=== PATIENT | male | born 1965 | race Hispanic/Latino ===

== ENCOUNTER 2019-06-19 13:40 | Inpatient (IN) | payer BC, OTHER ==
[2019-06-19] MEDS ORDERED: MORPHINE 4 MG/1 ML INJ IV ONE (14:43)
[2019-06-19] MEDS ORDERED: ONDANSETRON 4 MG/2 ML INJ IV ONE (14:43)
--- NOTE | 2019-06-19 14:47 | Emergency Department Report ---
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 Patient presented to the emergency room via EMS stating that he has been having generalized weakness and pain on the right side upper extremity side and lower extremity on the right si de. Patient also added that his is unable to take care of him at home because of his significant weakness.. -: week(s) Severity scale (0 -10): 8 - Related Data Allergies Allergy/AdvReac Type Severity Reaction Status Date / Time No Known Allergies Allergy Unverified 06/19/19 16:08 ED Review of Systems ROS: Stated complaint: BACKPAIN Other details as noted in HPI Comment: All other systems reviewed and negative Constitutional: denies: chills, fever Respiratory: denies: cough, shortness of breath Cardiovascular: denies: chest pain Gastrointestinal: denies: abdominal pain, nausea, vomiting Genitourinary: denies: urgency, dysuria Musculoskeletal: denies: back pain Neurological: weakness (left side weakness, chronic). denies: headache, numbness, paresthesias, confusion, abnormal gait ED Past Medical Hx - Past Medical History Previous Medical History?: Yes Hx CVA: Yes - Surgical History Past Surgical History?: No - Social History Smoking Status: Never Smoker Substance Use Type: None ED Physical Exam - General Limitations: Physical Limitation General appearance: alert, in no apparent distress - Head Head exam: Present: atraumatic, normocephalic, normal inspection - Eye Eye exam: Present: normal appearance, PERRL - ENT ENT exam: Present: normal exam, normal orophraynx, mucous membranes moist - Neck Neck exam: Present: normal inspection, full ROM. Absent: tenderness, meningismus, lymphadenopathy, thyromegaly - Respiratory Respiratory exam: Present: normal lung sounds bilaterally - Cardiovascular Cardiovascular Exam: Present: regular rate, normal rhythm, normal heart sounds - GI/Abdominal GI/Abdominal exam: Present: soft, normal bowel sounds. Absent: distended, tenderness, guarding, rebound, rigid, organomegaly, mass, bruit, pulsatile mass, hernia - Extremities Exam Extremities exam: Present: normal inspection, full ROM, normal capillary refill. Absent: pedal edema, calf tenderness - Back Exam Back exam: Present: normal inspection, full ROM. Absent: CVA tenderness (R), CVA tenderness (L) - Neurological Exam Neurological exam: Present: alert, oriented X3, motor sensory deficit (chronic left upper and lower extremity weakness.) - Psychiatric Psychiatric exam: Present: normal mood - Skin Skin exam: Present: warm, intact, normal color ED Course Vital Signs 06/19/19 06/19/19 14:03 14:14 Temperature 98.0 F 98.0 F Pulse Rate 66 56 L Respiratory 17 17 Rate Blood Pressure 155/83 Blood Pressure 155/83 155/83 [Left] O2 Sat by Pulse 98 98 Oximetry ED Medical Decision Making - Lab Data Result diagrams: 06/19/19 14:49 06/19/19 14:49 - EKG Data -: EKG Interpreted by Me EKG shows normal: sinus rhythm - EKG Data Interpretation: no acute changes - Medical Decision Making Patient is 54-year-old male with 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 Patient presented to the emergency room via EMS stating that he has been having generalized weakness and pain on the right side upper extremity side and lower extremity on the right side. Patient also added that his is unable to take care of him at home because of his significant weakness. Labs reviewed and is unremarkable. Patient received morphine for pain. I discussed the patient with Dr. Camarena, return to the patient to medical service. Critical care attestation.: If time is entered above; I have spent that time in minutes in the direct care of this critically ill patient, excluding procedure time. ED Disposition Clinical Impression: Weakness Disposition: DC-09 OP ADMIT IP TO THIS HOSP Is pt being admited?: Yes Condition: Stable
[2019-06-19 15:04] LABS: Basophils % (Auto) 0.2 % (0.0-1.8); Eosinophils % (Auto) 1.1 % (0.0-4.3); Hematocrit 34.2 % (35.5-45.6); Hemoglobin 11.5 gm/dl (11.8-15.2); Lymphocytes # (Auto) 0.7 K/mm3 (1.2-5.4); Mean Corpuscular HGB Conc 34 % (32-34); Mean Corpuscular Volume 91 fl (84-94); Monocytes # (Auto) 0.3 K/mm3 (0.0-0.8); Monocytes % (Auto) 9.9 % (0.0-7.3); Platelet Count 156 K/mm3 (140-440); Red Blood Count 3.75 M/mm3 (3.65-5.03); Red Cell Distribution Width 14.4 % (13.2-15.2)
[2019-06-19 15:27] LABS: BUN/Creatinine Ratio 17; Blood Urea Nitrogen 10 mg/dL (9-20); Calcium 9.5 mg/dL (8.4-10.2); Hemolysis Index 1
[2019-06-19 15:29] LABS: Alanine Aminotransferase 19 units/L (7-56); Albumin 3.8 g/dL (3.9-5)
[2019-06-19 15:30] LABS: Bilirubin,Direct < 0.2 mg/dL (0-0.2)
[2019-06-19] MEDS ORDERED: ONDANSETRON 4 MG/2 ML INJ IV PRN (22:28)
[2019-06-19] MEDS ORDERED: ACETAMINOPHEN 325 MG TAB PO PRN (22:28)
[2019-06-19] MEDS ORDERED: METOCLOPRAMIDE 10 MG/2 ML INJ IV PRN (22:28)
[2019-06-20] MEDS: MORPHINE 2 MG/1 ML INJ IV PRN ×2 (01:51→13:55)
[2019-06-20 05:11] LABS: Basophils % (Auto) 0.7 % (0.0-1.8); Eosinophils # (Auto) 0.1 K/mm3 (0.0-0.4); Eosinophils % (Auto) 3.1 % (0.0-4.3); Hematocrit 33.1 % (35.5-45.6); Lymphocytes # (Auto) 1.1 K/mm3 (1.2-5.4); Mean Corpuscular HGB Conc 33 % (32-34); Mean Corpuscular Volume 93 fl (84-94); Monocytes # (Auto) 0.4 K/mm3 (0.0-0.8); Monocytes % (Auto) 11.8 % (0.0-7.3); Platelet Count 154 K/mm3 (140-440); Red Blood Count 3.58 M/mm3 (3.65-5.03); Red Cell Distribution Width 14.5 % (13.2-15.2)
[2019-06-20 05:35] LABS: Alanine Aminotransferase 18 units/L (7-56); Albumin 3.5 g/dL (3.9-5); BUN/Creatinine Ratio 15; Blood Urea Nitrogen 9 mg/dL (9-20); Calcium 9.2 mg/dL (8.4-10.2); Hemolysis Index 5
--- NOTE | 2019-06-20 07:06 | History and Physical Report ---
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 Patient presented to the emergency room via EMS stating that he has been having generalized weakness and pain on the right side upper extremity side and lower extremity on the right side. Patient also added that his is unable to take care of him at home because of his significant weakness.. Past Medical History Previous Medical History?: Yes Hx CVA: Yes--Hemorrhagic stroke Total L side paralysis Brain aneurysm - Surgical History Past Surgical History?: No - Social History Smoking Status: Never Smoker Substance Use Type: None Review of Systems ROS: Stated complaint: BACKPAIN Other details as noted in HPI Comment: All other systems reviewed and negative Constitutional: denies: chills, fever Respiratory: denies: cough, shortness of breath Cardiovascular: denies: chest pain Gastrointestinal: denies: abdominal pain, nausea, vomiting Genitourinary: denies: urgency, dysuria Musculoskeletal: denies: back pain Neurological: weakness (left side weakness, chronic). denies: headache, numbness, paresthesias, confusion, abnormal gait Medications and Allergies Allergies Allergy/AdvReac Type Severity Reaction Status Date / Time No Known Allergies Allergy Unverified 06/19/19 16:08 Active Meds: Active Medications Acetaminophen (Tylenol) 650 mg PO Q4H PRN PRN Reason: Pain MILD(1-3)/Fever >100.5/VALLADARES Famotidine (Pepcid) 20 mg PO BID [facility] Sodium Chloride (Nacl 0.9% 1000 Ml) 1,000 mls @ 75 mls/hr IV DIRECT [facility] Metoclopramide HCl (Reglan) 10 mg IV Q6H PRN PRN Reason: Nausea And Vomiting Last Admin: 06/20/19 01:53 Dose: 10 mg Documented by: Morphine Sulfate (Morphine) 2 mg IV Q4H PRN PRN Reason: Pain, Moderate (4-6) Last Admin: 06/20/19 01:51 Dose: 2 mg Documented by: Ondansetron HCl (Zofran) 4 mg IV Q8H PRN PRN Reason: Nausea And Vomiting Sodium Chloride (Sodium Chloride Flush Syringe 10 Ml) 10 ml IV BID [facility] Last Admin: 06/20/19 01:54 Dose: 10 ml Documented by: Sodium Chloride (Sodium Chloride Flush Syringe 10 Ml) 10 ml IV PRN PRN PRN Reason: LINE FLUSH Exam - Constitutional Vitals: Temp Pulse Resp BP Pulse Ox 97.6 F 65 20 160/84 100 06/20/19 05:37 06/20/19 05:37 06/20/19 05:37 06/20/19 05:37 06/20/19 05:37 General appearance: Present: no acute distress, well-nourished - EENT Eyes: Present: PERRL ENT: hearing intact, clear oral mucosa - Neck Neck: Present: supple, normal ROM - Respiratory Respiratory effort: normal Respiratory: bilateral: CTA - Cardiovascular Heart rate: 88 Rhythm: regular Heart Sounds: Present: S1 & S2. Absent: rub, click - Extremities Extremities: no ischemia, pulses intact, pulses symmetrical, No edema Peripheral Pulses: within normal limits - Abdominal General gastrointestinal: Present: soft, non-tender, non-distended, normal bowel sounds Male genitourinary: Present: normal - Rectal Rectal Exam: deferred - Integumentary Integumentary: Present: clear, warm, dry - Musculoskeletal Musculoskeletal: left sided weakness (0/5 power lue and lle) - Psychiatric Psychiatric: appropriate mood/affect, intact judgment & insight - Neurologic Neurologic: CNII-XII intact, focal deficits (L side hemiplegia), moves all extremities, gait normal Results - Labs CBC & Chem 7: 06/20/19 04:43 06/20/19 04:43 Labs: Laboratory Last Values WBC 3.3 K/mm3 (4.5-11.0) L 06/20/19 04:43 RBC 3.58 M/mm3 (3.65-5.03) L 06/20/19 04:43 Hgb 11.0 gm/dl (11.8-15.2) L 06/20/19 04:43 Hct 33.1 % (35.5-45.6) L 06/20/19 04:43 MCV 93 fl (84-94) 06/20/19 04:43 MCH 31 pg (28-32) 06/20/19 04:43 MCHC 33 % (32-34) 06/20/19 04:43 RDW 14.5 % (13.2-15.2) 06/20/19 04:43 Plt Count 154 K/mm3 (140-440) 06/20/19 04:43 Lymph % (Auto) 33.0 % (13.4-35.0) 06/20/19 04:43 [place] % (Auto) 11.8 % (0.0-7.3) H 06/20/19 04:43 Eos % (Auto) 3.1 % (0.0-4.3) 06/20/19 04:43 Baso % (Auto) 0.7 % (0.0-1.8) 06/20/19 04:43 Lymph # 1.1 K/mm3 (1.2-5.4) L 06/20/19 04:43 [place] # 0.4 K/mm3 (0.0-0.8) 06/20/19 04:43 Eos # 0.1 K/mm3 (0.0-0.4) 06/20/19 04:43 Baso # 0.0 K/mm3 (0.0-0.1) 06/20/19 04:43 Seg Neutrophils % 51.4 % (40.0-70.0) 06/20/19 04:43 Seg Neutrophils # 1.7 K/mm3 (1.8-7.7) L 06/20/19 04:43 Sodium 135 mmol/L (137-145) L 06/20/19 04:43 Potassium 3.7 mmol/L (3.6-5.0) 06/20/19 04:43 Chloride 96.8 mmol/L (98-107) L 06/20/19 04:43 Carbon Dioxide 23 mmol/L (22-30) 06/20/19 04:43 19 mmol/L 06/20/19 04:43 BUN 9 mg/dL (9-20) 06/20/19 04:43 0.6 mg/dL (0.8-1.5) L 06/20/19 04:43 Estimated GFR > 60 ml/min 06/20/19 04:43 15 % 06/20/19 04:43 Glucose 74 mg/dL (75-100) L 06/20/19 04:43 5.6 % (4-6) 06/19/19 22:44 Calcium 9.2 mg/dL (8.4-10.2) 06/20/19 04:43 Magnesium 1.50 mg/dL (1.7-2.3) L 06/19/19 14:49 0.20 mg/dL (0.1-1.2) 06/20/19 04:43 < 0.2 mg/dL (0-0.2) 06/19/19 14:49 0.0 mg/dL 06/19/19 14:49 AST 13 units/L (5-40) 06/20/19 04:43 ALT 18 units/L (7-56) 06/20/19 04:43 67 units/L (35-129) 06/20/19 04:43 < 0.010 ng/mL (0.00-0.029) 06/19/19 14:49 7.3 g/dL (6.3-8.2) 06/20/19 04:43 3.5 g/dL (3.9-5) L 06/20/19 04:43 0.9 % 06/20/19 04:43 Orders 06/19/19 22:28 Nursing Standard Care CONT Physician Instructions: Resuscitation status . ORDERED Comment: Physician Instructions: Resuscitation Status: Full Code 06/19/19 22:31 Call Consult Provider Once Physician Instructions: Short CBC 06/19/19 06/20/19 Range/Units 14:49 04:43 WBC 3.3 L 3.3 L (4.5-11.0) K/mm3 Hgb 11.5 L 11.0 L (11.8-15.2) gm/dl Hct 34.2 L 33.1 L (35.5-45.6) % Plt Count 156 154 (140-440) K/mm3 BMP 06/19/19 06/20/19 14:49 04:43 Sodium 136 L 135 L Potassium 4.2 3.7 Chloride 97.1 L 96.8 L Carbon Dioxide 25 23 BUN 10 9 Creatinine 0.6 L 0.6 L Glucose 81 74 L Calcium 9.5 9.2 Cardiac Enzymes 06/19/19 Range/Units 14:49 Troponin T < 0.010 (0.00-0.029) ng/mL Liver Function 09/24/19 09/25/19 Range/Units 14:49 04:43 Total Bilirubin 0.20 0.20 (0.1-1.2) mg/dL Direct Bilirubin < 0.2 (0-0.2) mg/dL AST 15 13 (5-40) units/L ALT 19 18 (7-56) units/L Alkaline Phosphatase 71 67 (35-129) units/L Albumin 3.8 L 3.5 L (3.9-5) g/dL Assessment and Plan Advance Directives: Yes (Full code) VTE prophylaxis?: Mechanical Plan of care discussed with patient/family: Yes - Patient Problems (1) Debility Current Visit: Yes Status: Acute Plan to address problem: Patient had stroke on February 10 sec to Aneurysmal bleed.Unable to take care of himself and requests SNF placement for further for further rehab.Says cannot take care of him. Has dense L Hemiplegia (2) CVA (cerebrovascular accident due to intracerebral hemorrhage) Current Visit: Yes Status: Chronic Qualifiers: Intracerebral hemorrhage etiology: nontraumatic Laterality: right Plan to address problem: Happened on Feb 10 2019 Now dense Hemiplegia on L side Needs further rehab (3) Hypomagnesemia Current Visit: Yes Status: Acute Plan to address problem: supllemented (4) Malnutrition Current Visit: Yes Status: Chronic Qualifiers: Protein-calorie malnutrition severity: mild Plan to address problem: Dietitian consult (5) DVT prophylaxis Current Visit: Yes Status: Acute Plan to address problem: on Scd's
[2019-06-20 08:22] LABS: Bilirubin,Urine NEG (Negative); Blood,Urine NEG (Negative); Color,Urine Yellow (Yellow); Protein,Urine <15 mg/dL mg/dL (Negative); RBC,Urine < 1.0 /HPF (0.0-6.0); Urobilinogen,Urine < 2.0 mg/dL (<2.0); WBC,Urine < 1.0 /HPF (0.0-6.0)
[2019-06-20] MEDS ORDERED: MAGNESIUM SULFATE 2 GM/50 ML BAG IV ONE (09:00)
[2019-06-20] MEDS: FAMOTIDINE 20 MG TAB PO SCH ×2 (09:42→23:36)
--- NOTE | 2019-06-20 13:01 | Consultation ---
History of Present Illness Consult date: 06/20/19 Reason for Consult: history of stroke Chief complaint: Generalized weakness and pain History of present illness: Patient is a 54 old man with a history of hypertension, history of hemorrhagic stroke in January 2019 with residual left-sided weakness. Patient states that he had a hemorrhagic stroke in January 2019, and was found to have an aneurysm at that time. He was treated for the stroke at [place]. Patient states that after being discharged from [facility], he then spent time and rehabilitation, and ultimately went home in April 2019. He states that since being discharged home last month, he has not been getting physical therapy, and feels that it is been difficult for his to take care of him at home. He therefore feels that he would be better equipped at a rehabilitation facility or nursing facility in order for him to continue with work with physical therapy and continue to recover from the stroke. He denies any acute changes in symptoms recently, and states that he has been having ongoing generalized aches and pains over the past several weeks. Past History Past Medical History: other (hemorrhagic stroke due to aneurysm rupture in January 2019, hypertension) Social history: lives with family, other (previous smoker) Family history: no significant family history Medications and Allergies Allergies Allergy/AdvReac Type Severity Reaction Status Date / Time No Known Allergies Allergy Unverified 06/19/19 16:08 Active Meds: Active Medications Acetaminophen (Tylenol) 650 mg PO Q4H PRN PRN Reason: Pain MILD(1-3)/Fever >100.5/VALLADARES Famotidine (Pepcid) 20 mg PO BID [facility] Last Admin: 06/20/19 09:42 Dose: 20 mg Documented by: Sodium Chloride (Nacl 0.9% 1000 Ml) 1,000 mls @ 75 mls/hr IV DIRECT [facility] Metoclopramide HCl (Reglan) 10 mg IV Q6H PRN PRN Reason: Nausea And Vomiting Last Admin: 06/20/19 01:53 Dose: 10 mg Documented by: Morphine Sulfate (Morphine) 2 mg IV Q4H PRN PRN Reason: Pain, Moderate (4-6) Last Admin: 06/20/19 01:51 Dose: 2 mg Documented by: Ondansetron HCl (Zofran) 4 mg IV Q8H PRN PRN Reason: Nausea And Vomiting Sodium Chloride (Sodium Chloride Flush Syringe 10 Ml) 10 ml IV BID [facility] Last Admin: 06/20/19 09:43 Dose: 10 ml Documented by: Sodium Chloride (Sodium Chloride Flush Syringe 10 Ml) 10 ml IV PRN PRN PRN Reason: LINE FLUSH Review of Systems All systems: negative Constitutional: weakness, chronic pain Neurological: other (chronic left-sided weakness) Physical Examination - Vital Signs Vital Signs: Vital Signs Temp Pulse Resp BP Pulse Ox 98.0 F 66 17 155/83 98 06/19/19 14:03 06/19/19 14:03 06/19/19 14:03 06/19/19 14:03 06/19/19 14:03 - Physical Exam Narrative exam: Patient is awake, alert, oriented 4. Pupils equal, round, reactive to light. Extraocular movements intact, mild left facial weakness noted. Bilaterally intact to light touch on both sides of the face. Noted to have left visual field extinction on bilateral stimulation. Left upper extremity strength 1/5, left lower extremity strength 1 out of 5, right upper lower extremity strength 5/5. 3+ reflexes in left upper and lower extremities, 2+ reflexes on right upper and lower extremities. Bilaterally intact light touch in all extremities. [id number] and [id number] intact on the right, unable to assess on the left due to weakness. - Constitutional General appearance: comfortable - EENT EENT: Present: ATNC, PERRL, mucous membranes moist - Respiratory Respiratory: Present: lungs clear, normal breath sounds - Cardiovascular Cardiovascular: Present: regular rate, normal S1, normal S2 Extremities: Present: no clubbing, cyanosis, no inflammation - Gastrointestinal Gastrointestinal: Present: normoactive bowel sounds, soft, non-tender - Integumentary Integumentary: Present: normal - Psychiatric Psychiatric: Present: mood/affect appropriate - Level of Consciousness 1a. Level of Consciousness: alert/keenly responsive - LOC Questions 1b. LOC Questions: answers both correctly - LOC Command 1c. LOC Commands: performs tasks correctly - Best Gaze 2. Best Gaze: normal - Visual 3. Visual: no visual loss - Facial Palsy 4. Facial Palsy: minor paralysis - Motor Arm 5a. Motor Arm Left: no movement 5b. Motor Arm Right: no drift - Motor Leg 6a. Motor Leg Left: no gravity effort 6b. Motor Leg Right: no drift - Limb Ataxia 7. Limb Ataxia: absent - Sensory 8. Sensory: normal - Best Language 9. Best Language: no aphasia - Dysarthria 10. Dysarthria: normal - Extinction and Inattention 11. Extinction/Inattention: visual/tactile inattention - Scoring Total Score: 9 Stroke Severity: Moderate Stroke Results - Laboratory Findings CBC and BMP: 06/20/19 04:43 06/20/19 04:43 Abnormal Lab Findings: Abnormal Labs 06/19/19 06/19/19 06/19/19 14:49 14:49 14:49 WBC 3.3 L RBC Hgb 11.5 L Hct 34.2 L [place] % (Auto) 9.9 H Lymph # 0.7 L Seg Neutrophils # Sodium 136 L Chloride 97.1 L Creatinine 0.6 L Glucose Magnesium 1.50 L Albumin 3.8 L 06/20/19 06/20/19 04:43 04:43 WBC 3.3 L RBC 3.58 L Hgb 11.0 L Hct 33.1 L [place] % (Auto) 11.8 H Lymph # 1.1 L Seg Neutrophils # 1.7 L Sodium 135 L Chloride 96.8 L Creatinine 0.6 L Glucose 74 L Magnesium Albumin 3.5 L Assessment and Plan Patient is a 54 old man with a history of hypertension, history of hemorrhagic stroke due to aneurysmal rupture in January 2019 with residual left-sided weakness. According the patient's clinical findings, he's had a previous hemorrhagic stroke in January 2019 due to aneurysm rupture. He does not have any acute complaints at this time, however he states that he is had ongoing intermittent muscle related pain for the past several weeks since his stroke. He feels that he is not getting proper care at home, as he does not have physical therapy since being discharged home from rehabilitation. He also feels that his is not fully able to take care of him at home, as he is otherwise unable to walk. Plan: 1. History of hemorrhagic stroke with residual left sided weakness - Patient does not have any acute complaints at this time, and therefore does not warrant any acute neurologic workup. However, he would likely benefit from ongoing Physical Therapy, which he has not been getting since he was discharged to home last month. Patient also feels that his is not able to take care of him on her own at this time. Therefore, recommend for patient to be placed in a facility where he can have ongoing physical therapy, and potentially have improved supervised care, which he feels is unable to currently get at home. - Recommend PT evaluation inpatient. - Recommend for patient to be followed up by PM&R as outpatient, for long-term disability after hemorrhagic stroke. - Recommend for patient to have outpatient follow up with neurology. - Recommend target normotension. - Will sign off, as no further workup required at this time, and treatment plan is in place. Thank you for allowing me to take part in the care of this patient. Brady Knight MD Neurology
--- NOTE | 2019-06-20 14:28 | Progress Note ---
Assessment and Plan Assessment and plan: (1) Debility Current Visit: Yes Status: Acute Plan to address problem: Patient had stroke on February 10 sec to Aneurysmal bleed.Unable to take care of himself and requests SNF placement for further for further rehab.Says cannot take care of him. Has dense L Hemiplegia (2) CVA (cerebrovascular accident due to intracerebral hemorrhage) Current Visit: Yes Status: Chronic Qualifiers: Intracerebral hemorrhage etiology: nontraumatic Laterality: right Plan to address problem: Happened on Feb 10 2019 Now dense Hemiplegia on L side Needs further rehab (3) Hypomagnesemia Current Visit: Yes Status: Acute Plan to address problem: supllemented (4) Malnutrition Current Visit: Yes Status: Chronic Qualifiers: Protein-calorie malnutrition severity: mild Plan to address problem: Dietitian consult (5) DVT prophylaxis Current Visit: Yes Status: Acute Plan to address problem: on [facility]'s Disposition; pending SNF placement History Interval history: Patient was seen and evaluated this morning. Patient admitted here for placement. Hospitalist Physical - Physical exam Narrative exam: Not in cardiopulmonary distress. The patient appeared well nourished and normally developed. Vital signs as documented. Head exam is unremarkable. No scleral icterus . Neck is without jugular venous distension, thyromegaly, or carotid bruits. Lungs are clear to auscultation. Cardiac exam reveals regular rate and Rhythm. First and second heart sounds normal. No murmurs, rubs or gallops. Abdominal exam reveals normal bowel sounds, no masses, no organomegaly and no aortic enlargement. Extremities are nonedematous and both femoral and pedal pulses are normal. ANALYST GEOCHEMICAL PROSPECTING: Alert and oriented 3. Left-sided hemiplegia - Constitutional Vitals: Temp Pulse Resp BP Pulse Ox 97.3 F L 71 18 125/78 97 06/20/19 11:41 06/20/19 11:41 06/20/19 11:41 06/20/19 11:41 06/20/19 11:41 General appearance: Present: no acute distress, well-nourished Results - Labs CBC & Chem 7: 06/20/19 04:43 06/20/19 04:43 Labs: Laboratory Last Values WBC 3.3 K/mm3 (4.5-11.0) L 06/20/19 04:43 RBC 3.58 M/mm3 (3.65-5.03) L 06/20/19 04:43 Hgb 11.0 gm/dl (11.8-15.2) L 06/20/19 04:43 Hct 33.1 % (35.5-45.6) L 06/20/19 04:43 MCV 93 fl (84-94) 06/20/19 04:43 MCH 31 pg (28-32) 06/20/19 04:43 MCHC 33 % (32-34) 06/20/19 04:43 RDW 14.5 % (13.2-15.2) 06/20/19 04:43 Plt Count 154 K/mm3 (140-440) 06/20/19 04:43 Lymph % (Auto) 33.0 % (13.4-35.0) 06/20/19 04:43 [place] % (Auto) 11.8 % (0.0-7.3) H 06/20/19 04:43 Eos % (Auto) 3.1 % (0.0-4.3) 06/20/19 04:43 Baso % (Auto) 0.7 % (0.0-1.8) 06/20/19 04:43 Lymph # 1.1 K/mm3 (1.2-5.4) L 06/20/19 04:43 [place] # 0.4 K/mm3 (0.0-0.8) 06/20/19 04:43 Eos # 0.1 K/mm3 (0.0-0.4) 06/20/19 04:43 Baso # 0.0 K/mm3 (0.0-0.1) 06/20/19 04:43 Seg Neutrophils % 51.4 % (40.0-70.0) 06/20/19 04:43 Seg Neutrophils # 1.7 K/mm3 (1.8-7.7) L 06/20/19 04:43 Sodium 135 mmol/L (137-145) L 06/20/19 04:43 Potassium 3.7 mmol/L (3.6-5.0) 06/20/19 04:43 Chloride 96.8 mmol/L (98-107) L 06/20/19 04:43 Carbon Dioxide 23 mmol/L (22-30) 06/20/19 04:43 19 mmol/L 06/20/19 04:43 BUN 9 mg/dL (9-20) 06/20/19 04:43 0.6 mg/dL (0.8-1.5) L 06/20/19 04:43 Estimated GFR > 60 ml/min 06/20/19 04:43 15 % 06/20/19 04:43 Glucose 74 mg/dL (75-100) L 06/20/19 04:43 5.6 % (4-6) 06/19/19 22:44 Calcium 9.2 mg/dL (8.4-10.2) 06/20/19 04:43 Magnesium 1.50 mg/dL (1.7-2.3) L 06/19/19 14:49 0.20 mg/dL (0.1-1.2) 06/20/19 04:43 < 0.2 mg/dL (0-0.2) 06/19/19 14:49 0.0 mg/dL 06/19/19 14:49 AST 13 units/L (5-40) 06/20/19 04:43 ALT 18 units/L (7-56) 06/20/19 04:43 67 units/L (35-129) 06/20/19 04:43 < 0.010 ng/mL (0.00-0.029) 06/19/19 14:49 7.3 g/dL (6.3-8.2) 06/20/19 04:43 3.5 g/dL (3.9-5) L 06/20/19 04:43 0.9 % 06/20/19 04:43 Yellow (Yellow) 06/20/19 07:39 Clear (Clear) 06/20/19 07:39 6.0 (5.0-7.0) 06/20/19 07:39 Ur Specific [place] 1.008 (1.003-1.030) 06/20/19 07:39 <15 mg/dl mg/dL (Negative) 06/20/19 07:39 Neg mg/dL (Negative) 06/20/19 07:39 Tr mg/dL (Negative) 06/20/19 07:39 Neg (Negative) 06/20/19 07:39 Neg (Negative) 06/20/19 07:39 Neg (Negative) 06/20/19 07:39 < 2.0 mg/dL (<2.0) 06/20/19 07:39 Ur Leukocyte Esterase Neg (Negative) 06/20/19 07:39 < 1.0 /HPF (0.0-6.0) 06/20/19 07:39 < 1.0 /HPF (0.0-6.0) 06/20/19 07:39 Active Medications - Current Medications Current Medications: Generic Name Dose Route Start Last Admin Trade Name Freq PRN Reason Stop Dose Admin Acetaminophen 650 mg 06/19/19 22:28 Tylenol PO Q4H PRN Pain MILD(1-3)/Fever >100.5/VALLADARES Famotidine 20 mg 06/20/19 10:00 06/20/19 09:42 Pepcid PO 20 mg BID JUNE Administration Sodium Chloride 1,000 mls @ 75 mls/hr 06/19/19 23:00 Nacl 0.9% 1000 Ml IV DIRECT JUNE Metoclopramide HCl 10 mg 06/19/19 22:28 06/20/19 01:53 Reglan IV 10 mg Q6H PRN Administration Nausea And Vomiting Morphine Sulfate 2 mg 06/19/19 22:28 06/20/19 13:55 Morphine IV 2 mg Q4H PRN Administration Pain, Moderate (4-6) Ondansetron HCl 4 mg 06/19/19 22:28 Zofran IV Q8H PRN Nausea And Vomiting Sodium Chloride 10 ml 06/20/19 10:00 06/20/19 09:43 Sodium Chloride Flush Syringe 10 Ml IV 10 ml BID JUNE Administration Sodium Chloride 10 ml 06/19/19 22:28 Sodium Chloride Flush Syringe 10 Ml IV PRN PRN LINE FLUSH Nutrition/Malnutrition Assess - Dietary Evaluation Nutrition/Malnutrition Findings: Nutrition Notes Start: 06/20/19 10:34 Freq: Status: Active Protocol: Document 06/20/19 10:34 BOBBI (Rec: 06/20/19 11:27 DW [id number]) Co-Sign 06/20/19 10:34 NHALL Nutrition Notes Need for Assessment generated from: MD Order,ribbon blockmaker,MST Initial or Follow up Assessment Current Diagnosis Hypertension,Stroke Other Pertinent Diagnosis Stage 2 sacral wound Current Diet Cardiac Diet Labs/Tests Na: 135 Glu: 74 06/19/19 M.5 Pertinent Medications Mg Sulfate Height 5 ft 9 in Weight 73.6 kg Usual Body Weight 72.7 kg [place] Body Weight (kg) 72.72 BMI 23.9 Intake Prior to Admission Good Subjective/Other Information MD consult for malnutrition, Nurse screen for malnutrition risk and Andrea Score of 15 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 Pt stated his appetite has been good for the past month. Noted 50% of breakfast consumed at bed side with 75% of eggs consumed. Noted mild muscle depletion in R arm. Pt stated he is unaware of any recent wt loss Burn Absent Trauma Absent GI Symptoms None Food Allergy No Minimum of two criteria No #1 Nutrition Diagnosis Increased nutrient needs ( specify in comment below) Comments: PRO Etiology wound healing As Evidenced by Signs and Symptoms Stage 2 sacral wound Is patient on ventilator? No Is Patient Ambulatory and/or Out of Bed No REE-([facility]-confined to bed) 2835.505 Calculation Used for Recommendations [facility] Additional Notes PRO needs: 92-110 g (1.25-1.5 g/kg) Fluid needs: 1 mL/kcal Nutrition Intervention Change Diet Order: Continue Current Diet Add Supplement/Snack (indicate name/kcal Ensure Enlive BID /protein ) Provides kCal: 700 Provides Protein (gm) 40 Goal #1 Meet atleast 75% of kcal/PRO needs via PO/ONS Goal #2 Wound healing Anticipated Discharge Needs: Cardiac Diet with ONS daily Follow-Up By: 06/22/19 Additional Comments FU PO/ONS intake
[2019-06-20] MEDS: SODIUM CHLORIDE 0.9% 1000 ML 1,000 ML IV SCH (18:47)
[2019-06-20] MEDS: traZODone 100 MG TAB PO PRN (23:35)
[2019-06-21] MEDS: SODIUM CHLORIDE 0.9% 1000 ML 1,000 ML IV SCH ×2 (06:54→21:14)
[2019-06-21] MEDS: FLUoxetine 10 MG TAB PO SCH (10:00)
[2019-06-21] MEDS: FAMOTIDINE 20 MG TAB PO SCH ×2 (10:00→21:13)
[2019-06-21] MEDS: FOLIC ACID 1 MG TAB PO SCH (10:00)
[2019-06-21] MEDS: traMADol 50 MG TAB PO PRN (10:04)
--- NOTE | 2019-06-21 11:43 | Progress Note ---
Assessment and Plan Assessment and plan: (1) Debility Current Visit: Yes Status: Acute Plan to address problem: Patient had stroke on February 10 sec to Aneurysmal bleed.Unable to take care of himself and requests SNF placement for further for further rehab.Says cannot take care of him. Has dense L Hemiplegia (2) CVA (cerebrovascular accident due to intracerebral hemorrhage) Current Visit: Yes Status: Chronic Qualifiers: Intracerebral hemorrhage etiology: nontraumatic Laterality: right Plan to address problem: Happened on Feb 10 2019 Now dense Hemiplegia on L side Needs further rehab (3) Hypomagnesemia Current Visit: Yes Status: Acute Plan to address problem: supllemented (4) Malnutrition Current Visit: Yes Status: Chronic Qualifiers: Protein-calorie malnutrition severity: mild Plan to address problem: Dietitian consult (5) DVT prophylaxis Current Visit: Yes Status: Acute Plan to address problem: on [facility]'s Disposition; pending SNF placement History Interval history: Patient was seen and evaluated this morning. Patient admitted here for placement. Hospitalist Physical - Physical exam Narrative exam: Not in cardiopulmonary distress. The patient appeared well nourished and normally developed. Vital signs as documented. Head exam is unremarkable. No scleral icterus . Neck is without jugular venous distension, thyromegaly, or carotid bruits. Lungs are clear to auscultation. Cardiac exam reveals regular rate and Rhythm. First and second heart sounds normal. No murmurs, rubs or gallops. Abdominal exam reveals normal bowel sounds, no masses, no organomegaly and no aortic enlargement. Extremities are nonedematous and both femoral and pedal pulses are normal. FWS FACULTY ASSISTANT: Alert and oriented 3. Left-sided hemiplegia - Constitutional Vitals: Temp Pulse Resp BP Pulse Ox 97.8 F 101 H 20 134/95 95 06/21/19 04:59 06/21/19 04:59 06/21/19 04:59 06/21/19 04:59 06/21/19 04:59 General appearance: Present: no acute distress, well-nourished Results - Labs CBC & Chem 7: 06/20/19 04:43 06/20/19 04:43 Labs: Laboratory Last Values WBC 3.3 K/mm3 (4.5-11.0) L 06/20/19 04:43 RBC 3.58 M/mm3 (3.65-5.03) L 06/20/19 04:43 Hgb 11.0 gm/dl (11.8-15.2) L 06/20/19 04:43 Hct 33.1 % (35.5-45.6) L 06/20/19 04:43 MCV 93 fl (84-94) 06/20/19 04:43 MCH 31 pg (28-32) 06/20/19 04:43 MCHC 33 % (32-34) 06/20/19 04:43 RDW 14.5 % (13.2-15.2) 06/20/19 04:43 Plt Count 154 K/mm3 (140-440) 06/20/19 04:43 Lymph % (Auto) 33.0 % (13.4-35.0) 06/20/19 04:43 [place] % (Auto) 11.8 % (0.0-7.3) H 06/20/19 04:43 Eos % (Auto) 3.1 % (0.0-4.3) 06/20/19 04:43 Baso % (Auto) 0.7 % (0.0-1.8) 06/20/19 04:43 Lymph # 1.1 K/mm3 (1.2-5.4) L 06/20/19 04:43 [place] # 0.4 K/mm3 (0.0-0.8) 06/20/19 04:43 Eos # 0.1 K/mm3 (0.0-0.4) 06/20/19 04:43 Baso # 0.0 K/mm3 (0.0-0.1) 06/20/19 04:43 Seg Neutrophils % 51.4 % (40.0-70.0) 06/20/19 04:43 Seg Neutrophils # 1.7 K/mm3 (1.8-7.7) L 06/20/19 04:43 Sodium 135 mmol/L (137-145) L 06/20/19 04:43 Potassium 3.7 mmol/L (3.6-5.0) 06/20/19 04:43 Chloride 96.8 mmol/L (98-107) L 06/20/19 04:43 Carbon Dioxide 23 mmol/L (22-30) 06/20/19 04:43 19 mmol/L 06/20/19 04:43 BUN 9 mg/dL (9-20) 06/20/19 04:43 0.6 mg/dL (0.8-1.5) L 06/20/19 04:43 Estimated GFR > 60 ml/min 06/20/19 04:43 15 % 06/20/19 04:43 Glucose 74 mg/dL (75-100) L 06/20/19 04:43 5.6 % (4-6) 06/19/19 22:44 Calcium 9.2 mg/dL (8.4-10.2) 06/20/19 04:43 Magnesium 1.50 mg/dL (1.7-2.3) L 06/19/19 14:49 0.20 mg/dL (0.1-1.2) 06/20/19 04:43 < 0.2 mg/dL (0-0.2) 06/19/19 14:49 0.0 mg/dL 06/19/19 14:49 AST 13 units/L (5-40) 06/20/19 04:43 ALT 18 units/L (7-56) 06/20/19 04:43 67 units/L (35-129) 06/20/19 04:43 < 0.010 ng/mL (0.00-0.029) 06/19/19 14:49 7.3 g/dL (6.3-8.2) 06/20/19 04:43 3.5 g/dL (3.9-5) L 06/20/19 04:43 0.9 % 06/20/19 04:43 Yellow (Yellow) 06/20/19 07:39 Clear (Clear) 06/20/19 07:39 6.0 (5.0-7.0) 06/20/19 07:39 Ur Specific [place] 1.008 (1.003-1.030) 06/20/19 07:39 <15 mg/dl mg/dL (Negative) 06/20/19 07:39 Neg mg/dL (Negative) 06/20/19 07:39 Tr mg/dL (Negative) 06/20/19 07:39 Neg (Negative) 06/20/19 07:39 Neg (Negative) 06/20/19 07:39 Neg (Negative) 06/20/19 07:39 < 2.0 mg/dL (<2.0) 06/20/19 07:39 Ur Leukocyte Esterase Neg (Negative) 06/20/19 07:39 < 1.0 /HPF (0.0-6.0) 06/20/19 07:39 < 1.0 /HPF (0.0-6.0) 06/20/19 07:39 Active Medications - Current Medications Current Medications: Generic Name Dose Route Start Last Admin Trade Name Freq PRN Reason Stop Dose Admin Acetaminophen 650 mg 06/19/19 22:28 Tylenol PO Q4H PRN Pain MILD(1-3)/Fever >100.5/VALLADARES Famotidine 20 mg 06/20/19 10:00 06/21/19 10:00 Pepcid PO 20 mg BID UJNE Administration Fluoxetine HCl 30 mg 06/21/19 10:00 06/21/19 10:00 Prozac PO 30 mg DAILY JUNE Administration Folic Acid 1 mg 06/21/19 10:00 06/21/19 10:00 Folvite PO 1 mg DAILY JUNE Administration Sodium Chloride 1,000 mls @ 75 mls/hr 06/19/19 23:00 06/21/19 06:54 Nacl 0.9% 1000 Ml IV 75 mls/hr DIRECT JUNE Administration Metoclopramide HCl 10 mg 06/19/19 22:28 06/20/19 01:53 Reglan IV 10 mg Q6H PRN Administration Nausea And Vomiting Morphine Sulfate 2 mg 06/19/19 22:28 06/20/19 13:55 Morphine IV 2 mg Q4H PRN Administration Pain, Moderate (4-6) Ondansetron HCl 4 mg 06/19/19 22:28 Zofran IV Q8H PRN Nausea And Vomiting Sodium Chloride 10 ml 06/20/19 10:00 06/21/19 10:01 Sodium Chloride Flush Syringe 10 Ml IV 10 ml BID JUNE Administration Sodium Chloride 10 ml 06/19/19 22:28 Sodium Chloride Flush Syringe 10 Ml IV PRN PRN LINE FLUSH Tramadol HCl 50 mg 06/20/19 23:06 06/21/19 10:04 Ultram PO 50 mg Q6H PRN Administration Pain , Severe (7-10) Trazodone HCl 100 mg 06/20/19 23:06 06/20/19 23:35 Desyrel PO 100 mg HS PRN Administration Sleep Nutrition/Malnutrition Assess - Dietary Evaluation Nutrition/Malnutrition Findings: Nutrition Notes Start: 06/20/19 10:34 Freq: Status: Active Protocol: Document 06/20/19 10:34 DW (Rec: 06/20/19 11:27 DW [id number]) Co-Sign 06/20/19 10:34 NHALL Nutrition Notes Need for Assessment generated from: MD Order,asphalt layer,MST Initial or Follow up Assessment Current Diagnosis Hypertension,Stroke Other Pertinent Diagnosis Stage 2 sacral wound Current Diet Cardiac Diet Labs/Tests Na: 135 Glu: 74 06/19/19 M.5 Pertinent Medications Mg Sulfate Height 5 ft 9 in Weight 73.6 kg Usual Body Weight 72.7 kg [place] Body Weight (kg) 72.72 BMI 23.9 Intake Prior to Admission Good Subjective/Other Information MD consult for malnutrition, Nurse screen for malnutrition risk and Andrea Score of 15 Pt stated he typically eats 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 Pt stated his appetite has been good for the past month. Noted 50% of breakfast consumed at bed side with 75% of eggs consumed. Noted mild muscle depletion in R arm. Pt stated he is unaware of any recent wt loss Burn Absent Trauma Absent GI Symptoms None Food Allergy No Minimum of two criteria No #1 Nutrition Diagnosis Increased nutrient needs ( specify in comment below) Comments: PRO Etiology wound healing As Evidenced by Signs and Symptoms Stage 2 sacral wound Is patient on ventilator? No Is Patient Ambulatory and/or Out of Bed No REE-([facility]-confined to bed) 9426.144 Calculation Used for Recommendations [facility] Additional Notes PRO needs: 92-110 g (1.25-1.5 g/kg) Fluid needs: 1 mL/kcal Nutrition Intervention Change Diet Order: Continue Current Diet Add Supplement/Snack (indicate name/kcal Ensure Enlive BID /protein ) Provides kCal: 700 Provides Protein (gm) 40 Goal #1 Meet atleast 75% of kcal/PRO needs via PO/ONS Goal #2 Wound healing Anticipated Discharge Needs: Cardiac Diet with ONS daily Follow-Up By: 06/22/19 Additional Comments FU PO/ONS intake
[2019-06-21] MEDS: MORPHINE 2 MG/1 ML INJ IV PRN (14:57)
[2019-06-21] MEDS: traZODone 100 MG TAB PO PRN (21:13)
[2019-06-22] MEDS: FOLIC ACID 1 MG TAB PO SCH (09:30)
[2019-06-22] MEDS: traMADol 50 MG TAB PO PRN ×3 (09:30→21:10)
[2019-06-22] MEDS: FAMOTIDINE 20 MG TAB PO SCH ×2 (09:30→21:10)
[2019-06-22] MEDS: FLUoxetine 10 MG TAB PO SCH (09:30)
--- NOTE | 2019-06-22 13:13 | Progress Note ---
Assessment and Plan Assessment and plan: (1) Debility Current Visit: Yes Status: Acute Plan to address problem: Patient had stroke on February 10 sec to Aneurysmal bleed.Unable to take care of himself and requests SNF placement for further for further rehab.Says cannot take care of him. Has dense L Hemiplegia (2) CVA (cerebrovascular accident due to intracerebral hemorrhage) Current Visit: Yes Status: Chronic Qualifiers: Intracerebral hemorrhage etiology: nontraumatic Laterality: right Plan to address problem: Happened on Feb 10 2019 Now dense Hemiplegia on L side Needs further rehab (3) Hypomagnesemia Current Visit: Yes Status: Acute Plan to address problem: supllemented (4) Malnutrition Current Visit: Yes Status: Chronic Qualifiers: Protein-calorie malnutrition severity: mild Plan to address problem: Dietitian consult (5) DVT prophylaxis Current Visit: Yes Status: Acute Plan to address problem: on [facility]'s Disposition; pending SNF placement History Interval history: Patient was seen and evaluated this morning. Patient admitted here for placement. Hospitalist Physical - Physical exam Narrative exam: Not in cardiopulmonary distress. The patient appeared well nourished and normally developed. Vital signs as documented. Head exam is unremarkable. No scleral icterus . Neck is without jugular venous distension, thyromegaly, or carotid bruits. Lungs are clear to auscultation. Cardiac exam reveals regular rate and Rhythm. First and second heart sounds normal. No murmurs, rubs or gallops. Abdominal exam reveals normal bowel sounds, no masses, no organomegaly and no aortic enlargement. Extremities are nonedematous and both femoral and pedal pulses are normal. BIOINFORMATICS SCIENTIST: Alert and oriented 3. Left-sided hemiplegia - Constitutional Vitals: Temp Pulse Resp BP Pulse Ox 98.0 F 115 H 22 126/95 95 06/22/19 05:21 06/22/19 05:21 06/22/19 05:21 06/22/19 05:21 06/22/19 05:21 General appearance: Present: no acute distress, well-nourished Results - Labs CBC & Chem 7: 06/20/19 04:43 06/20/19 04:43 Labs: Laboratory Last Values WBC 3.3 K/mm3 (4.5-11.0) L 06/20/19 04:43 RBC 3.58 M/mm3 (3.65-5.03) L 06/20/19 04:43 Hgb 11.0 gm/dl (11.8-15.2) L 06/20/19 04:43 Hct 33.1 % (35.5-45.6) L 06/20/19 04:43 MCV 93 fl (84-94) 06/20/19 04:43 MCH 31 pg (28-32) 06/20/19 04:43 MCHC 33 % (32-34) 06/20/19 04:43 RDW 14.5 % (13.2-15.2) 06/20/19 04:43 Plt Count 154 K/mm3 (140-440) 06/20/19 04:43 Lymph % (Auto) 33.0 % (13.4-35.0) 06/20/19 04:43 [place] % (Auto) 11.8 % (0.0-7.3) H 06/20/19 04:43 Eos % (Auto) 3.1 % (0.0-4.3) 06/20/19 04:43 Baso % (Auto) 0.7 % (0.0-1.8) 06/20/19 04:43 Lymph # 1.1 K/mm3 (1.2-5.4) L 06/20/19 04:43 [place] # 0.4 K/mm3 (0.0-0.8) 06/20/19 04:43 Eos # 0.1 K/mm3 (0.0-0.4) 06/20/19 04:43 Baso # 0.0 K/mm3 (0.0-0.1) 06/20/19 04:43 Seg Neutrophils % 51.4 % (40.0-70.0) 06/20/19 04:43 Seg Neutrophils # 1.7 K/mm3 (1.8-7.7) L 06/20/19 04:43 Sodium 135 mmol/L (137-145) L 06/20/19 04:43 Potassium 3.7 mmol/L (3.6-5.0) 06/20/19 04:43 Chloride 96.8 mmol/L (98-107) L 06/20/19 04:43 Carbon Dioxide 23 mmol/L (22-30) 06/20/19 04:43 19 mmol/L 06/20/19 04:43 BUN 9 mg/dL (9-20) 06/20/19 04:43 0.6 mg/dL (0.8-1.5) L 06/20/19 04:43 Estimated GFR > 60 ml/min 06/20/19 04:43 15 % 06/20/19 04:43 Glucose 74 mg/dL (75-100) L 06/20/19 04:43 5.6 % (4-6) 06/19/19 22:44 Calcium 9.2 mg/dL (8.4-10.2) 06/20/19 04:43 Magnesium 1.50 mg/dL (1.7-2.3) L 06/19/19 14:49 0.20 mg/dL (0.1-1.2) 06/20/19 04:43 < 0.2 mg/dL (0-0.2) 06/19/19 14:49 0.0 mg/dL 06/19/19 14:49 AST 13 units/L (5-40) 06/20/19 04:43 ALT 18 units/L (7-56) 06/20/19 04:43 67 units/L (35-129) 06/20/19 04:43 < 0.010 ng/mL (0.00-0.029) 06/19/19 14:49 7.3 g/dL (6.3-8.2) 06/20/19 04:43 3.5 g/dL (3.9-5) L 06/20/19 04:43 0.9 % 06/20/19 04:43 Yellow (Yellow) 06/20/19 07:39 Clear (Clear) 06/20/19 07:39 6.0 (5.0-7.0) 06/20/19 07:39 Ur Specific [place] 1.008 (1.003-1.030) 06/20/19 07:39 <15 mg/dl mg/dL (Negative) 06/20/19 07:39 Neg mg/dL (Negative) 06/20/19 07:39 Tr mg/dL (Negative) 06/20/19 07:39 Neg (Negative) 06/20/19 07:39 Neg (Negative) 06/20/19 07:39 Neg (Negative) 06/20/19 07:39 < 2.0 mg/dL (<2.0) 06/20/19 07:39 Ur Leukocyte Esterase Neg (Negative) 06/20/19 07:39 < 1.0 /HPF (0.0-6.0) 06/20/19 07:39 < 1.0 /HPF (0.0-6.0) 06/20/19 07:39 Active Medications - Current Medications Current Medications: Generic Name Dose Route Start Last Admin Trade Name Freq PRN Reason Stop Dose Admin Acetaminophen 650 mg 06/19/19 22:28 Tylenol PO Q4H PRN Pain MILD(1-3)/Fever >100.5/VALLADARES Famotidine 20 mg 06/20/19 10:00 06/22/19 09:30 Pepcid PO 20 mg BID JUNE Administration Fluoxetine HCl 30 mg 06/21/19 10:00 06/22/19 09:30 Prozac PO 30 mg DAILY JUNE Administration Folic Acid 1 mg 06/21/19 10:00 06/22/19 09:30 Folvite PO 1 mg DAILY JUNE Administration Metoclopramide HCl 10 mg 06/19/19 22:28 06/20/19 01:53 Reglan IV 10 mg Q6H PRN Administration Nausea And Vomiting Morphine Sulfate 2 mg 06/19/19 22:28 06/21/19 14:57 Morphine IV 2 mg Q4H PRN Administration Pain, Moderate (4-6) Ondansetron HCl 4 mg 06/19/19 22:28 Zofran IV Q8H PRN Nausea And Vomiting Sodium Chloride 10 ml 06/20/19 10:00 06/22/19 09:31 Sodium Chloride Flush Syringe 10 Ml IV 10 ml BID JUNE Administration Sodium Chloride 10 ml 06/19/19 22:28 Sodium Chloride Flush Syringe 10 Ml IV PRN PRN LINE FLUSH Tramadol HCl 50 mg 06/20/19 23:06 06/22/19 09:30 Ultram PO 50 mg Q6H PRN Administration Pain , Severe (7-10) Trazodone HCl 100 mg 06/20/19 23:06 06/21/19 21:13 Desyrel PO 100 mg HS PRN Administration Sleep Nutrition/Malnutrition Assess - Dietary Evaluation Nutrition/Malnutrition Findings: Nutrition Notes Start: 06/20/19 10:34 Freq: Status: Active Protocol: Document 06/22/19 11:46 DW (Rec: 06/22/19 12:36 DW [id number]) Co-Sign 06/22/19 11:46 LP Nutrition Notes Initial or Follow up Reassessment Current Diagnosis Hypertension,Stroke Other Pertinent Diagnosis Stage 2 sacral wound Current Diet Cardiac Diet Labs/Tests Reviewed Pertinent Medications Reviewed Height 5 ft 9 in Weight 73 kg [place] Body Weight (kg) 72.72 BMI 23.8 Subjective/Other Information Pt stated that his appetite is improving and is feeling better. Pt was consuming breakfast upon arrival. Per pt care, pt consumed 75% breakfast, 100% lunch and 0% dinner on 06/21/19. Pt drinking 100% ONS Percent of energy/protein needs met: 100%/72% Burn Absent Trauma Absent GI Symptoms None Minimum of two criteria No #1 Nutrition Diagnosis Increased nutrient needs ( specify in comment below) Comments: PRO Diagnosis Progress(for reassessment Continues documentation) Is patient on ventilator? No Is Patient Ambulatory and/or Out of Bed No REE-([facility]-confined to bed) 2700.856 Calculation Used for Recommendations [facility] Additional Notes PRO needs: 92-110 g (1.25-1.5 g/kg) Fluid needs: 1 mL/kcal Nutrition Intervention Change Diet Order: Continue Current Diet Add Supplement/Snack (indicate name/kcal Ensure Enlive BID /protein ) Provides kCal: 700 Provides Protein (gm) 40 Goal #1 Meet atleast 75% of kcal/PRO needs via PO/ONS Goal #2 Wound healing Anticipated Discharge Needs: Cardiac Diet with ONS daily Follow-Up By: 06/27/19 Additional Comments FU PO/ONS intake
[2019-06-22] MEDS: traZODone 100 MG TAB PO PRN (21:11)
[2019-06-23] MEDS: FOLIC ACID 1 MG TAB PO SCH (09:39)
[2019-06-23] MEDS: FAMOTIDINE 20 MG TAB PO SCH ×2 (09:39→21:52)
[2019-06-23] MEDS: FLUoxetine 10 MG TAB PO SCH (09:39)
[2019-06-23] MEDS: traMADol 50 MG TAB PO PRN (09:45)
--- NOTE | 2019-06-23 13:18 | Progress Note ---
Assessment and Plan Assessment and plan: (1) Debility Current Visit: Yes Status: Acute Plan to address problem: Patient had stroke on February 10 sec to Aneurysmal bleed.Unable to take care of himself and requests SNF placement for further for further rehab.Says cannot take care of him. Has dense L Hemiplegia (2) CVA (cerebrovascular accident due to intracerebral hemorrhage) Current Visit: Yes Status: Chronic Qualifiers: Intracerebral hemorrhage etiology: nontraumatic Laterality: right Plan to address problem: Happened on Feb 10 2019 Now dense Hemiplegia on L side Needs further rehab (3) Hypomagnesemia Current Visit: Yes Status: Acute Plan to address problem: supllemented (4) Malnutrition Current Visit: Yes Status: Chronic Qualifiers: Protein-calorie malnutrition severity: mild Plan to address problem: Dietitian consult (5) DVT prophylaxis Current Visit: Yes Status: Acute Plan to address problem: on [facility]'s Disposition; pending SNF placement History Interval history: Patient was seen and evaluated this morning. Patient admitted here for placement. Hospitalist Physical - Physical exam Narrative exam: Not in cardiopulmonary distress. The patient appeared well nourished and normally developed. Vital signs as documented. Head exam is unremarkable. No scleral icterus . Neck is without jugular venous distension, thyromegaly, or carotid bruits. Lungs are clear to auscultation. Cardiac exam reveals regular rate and Rhythm. First and second heart sounds normal. No murmurs, rubs or gallops. Abdominal exam reveals normal bowel sounds, no masses, no organomegaly and no aortic enlargement. Extremities are nonedematous and both femoral and pedal pulses are normal. GRAPHICS PRODUCTION SPECIALIST: Alert and oriented 3. Left-sided hemiplegia - Constitutional Vitals: Temp Pulse Resp BP Pulse Ox 97.5 F L 117 H 18 126/87 98 06/23/19 11:17 06/23/19 11:17 06/23/19 11:17 06/23/19 11:17 06/23/19 11:17 General appearance: Present: no acute distress, well-nourished Results - Labs CBC & Chem 7: 06/20/19 04:43 06/20/19 04:43 Labs: Laboratory Last Values WBC 3.3 K/mm3 (4.5-11.0) L 06/20/19 04:43 RBC 3.58 M/mm3 (3.65-5.03) L 06/20/19 04:43 Hgb 11.0 gm/dl (11.8-15.2) L 06/20/19 04:43 Hct 33.1 % (35.5-45.6) L 06/20/19 04:43 MCV 93 fl (84-94) 06/20/19 04:43 MCH 31 pg (28-32) 06/20/19 04:43 MCHC 33 % (32-34) 06/20/19 04:43 RDW 14.5 % (13.2-15.2) 06/20/19 04:43 Plt Count 154 K/mm3 (140-440) 06/20/19 04:43 Lymph % (Auto) 33.0 % (13.4-35.0) 06/20/19 04:43 [place] % (Auto) 11.8 % (0.0-7.3) H 06/20/19 04:43 Eos % (Auto) 3.1 % (0.0-4.3) 06/20/19 04:43 Baso % (Auto) 0.7 % (0.0-1.8) 06/20/19 04:43 Lymph # 1.1 K/mm3 (1.2-5.4) L 06/20/19 04:43 [place] # 0.4 K/mm3 (0.0-0.8) 06/20/19 04:43 Eos # 0.1 K/mm3 (0.0-0.4) 06/20/19 04:43 Baso # 0.0 K/mm3 (0.0-0.1) 06/20/19 04:43 Seg Neutrophils % 51.4 % (40.0-70.0) 06/20/19 04:43 Seg Neutrophils # 1.7 K/mm3 (1.8-7.7) L 06/20/19 04:43 Sodium 135 mmol/L (137-145) L 06/20/19 04:43 Potassium 3.7 mmol/L (3.6-5.0) 06/20/19 04:43 Chloride 96.8 mmol/L (98-107) L 06/20/19 04:43 Carbon Dioxide 23 mmol/L (22-30) 06/20/19 04:43 19 mmol/L 06/20/19 04:43 BUN 9 mg/dL (9-20) 06/20/19 04:43 0.6 mg/dL (0.8-1.5) L 06/20/19 04:43 Estimated GFR > 60 ml/min 06/20/19 04:43 15 % 06/20/19 04:43 Glucose 74 mg/dL (75-100) L 06/20/19 04:43 5.6 % (4-6) 06/19/19 22:44 Calcium 9.2 mg/dL (8.4-10.2) 06/20/19 04:43 Magnesium 1.50 mg/dL (1.7-2.3) L 06/19/19 14:49 0.20 mg/dL (0.1-1.2) 06/20/19 04:43 < 0.2 mg/dL (0-0.2) 06/19/19 14:49 0.0 mg/dL 06/19/19 14:49 AST 13 units/L (5-40) 06/20/19 04:43 ALT 18 units/L (7-56) 06/20/19 04:43 67 units/L (35-129) 06/20/19 04:43 < 0.010 ng/mL (0.00-0.029) 06/19/19 14:49 7.3 g/dL (6.3-8.2) 06/20/19 04:43 3.5 g/dL (3.9-5) L 06/20/19 04:43 0.9 % 06/20/19 04:43 Yellow (Yellow) 06/20/19 07:39 Clear (Clear) 06/20/19 07:39 6.0 (5.0-7.0) 06/20/19 07:39 Ur Specific [place] 1.008 (1.003-1.030) 06/20/19 07:39 <15 mg/dl mg/dL (Negative) 06/20/19 07:39 Neg mg/dL (Negative) 06/20/19 07:39 Tr mg/dL (Negative) 06/20/19 07:39 Neg (Negative) 06/20/19 07:39 Neg (Negative) 06/20/19 07:39 Neg (Negative) 06/20/19 07:39 < 2.0 mg/dL (<2.0) 06/20/19 07:39 Ur Leukocyte Esterase Neg (Negative) 06/20/19 07:39 < 1.0 /HPF (0.0-6.0) 06/20/19 07:39 < 1.0 /HPF (0.0-6.0) 06/20/19 07:39 Active Medications - Current Medications Current Medications: Generic Name Dose Route Start Last Admin Trade Name Freq PRN Reason Stop Dose Admin Acetaminophen 650 mg 06/19/19 22:28 Tylenol PO Q4H PRN Pain MILD(1-3)/Fever >100.5/VALLADARES Famotidine 20 mg 06/20/19 10:00 06/23/19 09:39 Pepcid PO 20 mg BID JUNE Administration Fluoxetine HCl 30 mg 06/21/19 10:00 06/23/19 09:39 Prozac PO 30 mg DAILY JUNE Administration Folic Acid 1 mg 06/21/19 10:00 06/23/19 09:39 Folvite PO 1 mg DAILY JUNE Administration Metoclopramide HCl 10 mg 06/19/19 22:28 06/20/19 01:53 Reglan IV 10 mg Q6H PRN Administration Nausea And Vomiting Morphine Sulfate 2 mg 06/19/19 22:28 06/21/19 14:57 Morphine IV 2 mg Q4H PRN Administration Pain, Moderate (4-6) Ondansetron HCl 4 mg 06/19/19 22:28 Zofran IV Q8H PRN Nausea And Vomiting Sodium Chloride 10 ml 06/20/19 10:00 06/23/19 09:39 Sodium Chloride Flush Syringe 10 Ml IV 10 ml BID JUNE Administration Sodium Chloride 10 ml 06/19/19 22:28 Sodium Chloride Flush Syringe 10 Ml IV PRN PRN LINE FLUSH Tramadol HCl 50 mg 06/20/19 23:06 06/23/19 09:45 Ultram PO 50 mg Q6H PRN Administration Pain , Severe (7-10) Trazodone HCl 100 mg 06/20/19 23:06 06/22/19 21:11 Desyrel PO 100 mg HS PRN Administration Sleep Nutrition/Malnutrition Assess - Dietary Evaluation Nutrition/Malnutrition Findings: Nutrition Notes Start: 06/20/19 10:34 Freq: Status: Active Protocol: Document 06/22/19 11:46 DW (Rec: 06/22/19 12:36 DW [id number]) Co-Sign 06/22/19 11:46 LP Nutrition Notes Initial or Follow up Reassessment Current Diagnosis Hypertension,Stroke Other Pertinent Diagnosis Stage 2 sacral wound Current Diet Cardiac Diet Labs/Tests Reviewed Pertinent Medications Reviewed Height 5 ft 9 in Weight 73 kg [place] Body Weight (kg) 72.72 BMI 23.8 Subjective/Other Information Pt stated that his appetite is improving and is feeling better. Pt was consuming breakfast upon arrival. Per pt care, pt consumed 75% breakfast, 100% lunch and 0% dinner on 06/21/19. Pt drinking 100% ONS Percent of energy/protein needs met: 100%/72% Burn Absent Trauma Absent GI Symptoms None Minimum of two criteria No #1 Nutrition Diagnosis Increased nutrient needs ( specify in comment below) Comments: PRO Diagnosis Progress(for reassessment Continues documentation) Is patient on ventilator? No Is Patient Ambulatory and/or [facility] Bed [facility].110 Calculation Used for Recommendations [facility] Additional Notes PRO needs: 92-110 g (1.25-1.5 g/kg) Fluid needs: 1 mL/kcal Nutrition Intervention Change Diet Order: Continue Current Diet Add Supplement/Snack (indicate name/kcal Ensure Enlive BID /protein ) Provides kCal: 700 Provides Protein (gm) 40 Goal #1 Meet atleast 75% of kcal/PRO needs via PO/ONS Goal #2 Wound healing Anticipated Discharge Needs: Cardiac Diet with ONS daily Follow-Up By: 06/27/19 Additional Comments FU PO/ONS intake
[2019-06-23] MEDS: MORPHINE 2 MG/1 ML INJ IV PRN ×2 (14:22→21:53)
--- NOTE | 2019-06-24 10:29 | Progress Note ---
Assessment and Plan Assessment and plan: (1) Debility Current Visit: Yes Status: Acute Plan to address problem: Patient had stroke on February 10 sec to Aneurysmal bleed.Unable to take care of himself and requests SNF placement for further for further rehab.Says cannot take care of him. Has dense L Hemiplegia (2) CVA (cerebrovascular accident due to intracerebral hemorrhage) Current Visit: Yes Status: Chronic Qualifiers: Intracerebral hemorrhage etiology: nontraumatic Laterality: right Plan to address problem: Happened on Feb 10 2019 Now dense Hemiplegia on L side Needs further rehab (3) Hypomagnesemia Current Visit: Yes Status: Acute Plan to address problem: supllemented (4) Malnutrition Current Visit: Yes Status: Chronic Qualifiers: Protein-calorie malnutrition severity: mild Plan to address problem: Dietitian consult (5) DVT prophylaxis Current Visit: Yes Status: Acute Plan to address problem: on [facility]'s Disposition; pending SNF placement History Interval history: Patient was seen and evaluated this morning. Patient admitted here for placement. Hospitalist Physical - Physical exam Narrative exam: Not in cardiopulmonary distress. The patient appeared well nourished and normally developed. Vital signs as documented. Head exam is unremarkable. No scleral icterus . Neck is without jugular venous distension, thyromegaly, or carotid bruits. Lungs are clear to auscultation. Cardiac exam reveals regular rate and Rhythm. First and second heart sounds normal. No murmurs, rubs or gallops. Abdominal exam reveals normal bowel sounds, no masses, no organomegaly and no aortic enlargement. Extremities are nonedematous and both femoral and pedal pulses are normal. REFINERY PROCESS ENGINEER: Alert and oriented 3. Left-sided hemiplegia - Constitutional Vitals: Temp Pulse Resp BP Pulse Ox 97.6 F 113 H 18 95/57 94 06/24/19 04:37 06/24/19 04:37 06/24/19 04:37 06/24/19 04:37 06/24/19 04:37 General appearance: Present: no acute distress, well-nourished Results - Labs CBC & Chem 7: 06/20/19 04:43 06/20/19 04:43 Labs: Laboratory Last Values WBC 3.3 K/mm3 (4.5-11.0) L 06/20/19 04:43 RBC 3.58 M/mm3 (3.65-5.03) L 06/20/19 04:43 Hgb 11.0 gm/dl (11.8-15.2) L 06/20/19 04:43 Hct 33.1 % (35.5-45.6) L 06/20/19 04:43 MCV 93 fl (84-94) 06/20/19 04:43 MCH 31 pg (28-32) 06/20/19 04:43 MCHC 33 % (32-34) 06/20/19 04:43 RDW 14.5 % (13.2-15.2) 06/20/19 04:43 Plt Count 154 K/mm3 (140-440) 06/20/19 04:43 Lymph % (Auto) 33.0 % (13.4-35.0) 06/20/19 04:43 [place] % (Auto) 11.8 % (0.0-7.3) H 06/20/19 04:43 Eos % (Auto) 3.1 % (0.0-4.3) 06/20/19 04:43 Baso % (Auto) 0.7 % (0.0-1.8) 06/20/19 04:43 Lymph # 1.1 K/mm3 (1.2-5.4) L 06/20/19 04:43 [place] # 0.4 K/mm3 (0.0-0.8) 06/20/19 04:43 Eos # 0.1 K/mm3 (0.0-0.4) 06/20/19 04:43 Baso # 0.0 K/mm3 (0.0-0.1) 06/20/19 04:43 Seg Neutrophils % 51.4 % (40.0-70.0) 06/20/19 04:43 Seg Neutrophils # 1.7 K/mm3 (1.8-7.7) L 06/20/19 04:43 Sodium 135 mmol/L (137-145) L 06/20/19 04:43 Potassium 3.7 mmol/L (3.6-5.0) 06/20/19 04:43 Chloride 96.8 mmol/L (98-107) L 06/20/19 04:43 Carbon Dioxide 23 mmol/L (22-30) 06/20/19 04:43 19 mmol/L 06/20/19 04:43 BUN 9 mg/dL (9-20) 06/20/19 04:43 0.6 mg/dL (0.8-1.5) L 06/20/19 04:43 Estimated GFR > 60 ml/min 06/20/19 04:43 15 % 06/20/19 04:43 Glucose 74 mg/dL (75-100) L 06/20/19 04:43 5.6 % (4-6) 06/19/19 22:44 Calcium 9.2 mg/dL (8.4-10.2) 06/20/19 04:43 Magnesium 1.50 mg/dL (1.7-2.3) L 06/19/19 14:49 0.20 mg/dL (0.1-1.2) 06/20/19 04:43 < 0.2 mg/dL (0-0.2) 06/19/19 14:49 0.0 mg/dL 06/19/19 14:49 AST 13 units/L (5-40) 06/20/19 04:43 ALT 18 units/L (7-56) 06/20/19 04:43 67 units/L (35-129) 06/20/19 04:43 < 0.010 ng/mL (0.00-0.029) 06/19/19 14:49 7.3 g/dL (6.3-8.2) 06/20/19 04:43 3.5 g/dL (3.9-5) L 06/20/19 04:43 0.9 % 06/20/19 04:43 Yellow (Yellow) 06/20/19 07:39 Clear (Clear) 06/20/19 07:39 6.0 (5.0-7.0) 06/20/19 07:39 Ur Specific [place] 1.008 (1.003-1.030) 06/20/19 07:39 <15 mg/dl mg/dL (Negative) 06/20/19 07:39 Neg mg/dL (Negative) 06/20/19 07:39 Tr mg/dL (Negative) 06/20/19 07:39 Neg (Negative) 06/20/19 07:39 Neg (Negative) 06/20/19 07:39 Neg (Negative) 06/20/19 07:39 < 2.0 mg/dL (<2.0) 06/20/19 07:39 Ur Leukocyte Esterase Neg (Negative) 06/20/19 07:39 < 1.0 /HPF (0.0-6.0) 06/20/19 07:39 < 1.0 /HPF (0.0-6.0) 06/20/19 07:39 Active Medications - Current Medications Current Medications: Generic Name Dose Route Start Last Admin Trade Name Freq PRN Reason Stop Dose Admin Acetaminophen 650 mg 06/19/19 22:28 Tylenol PO Q4H PRN Pain MILD(1-3)/Fever >100.5/VALLADARES Famotidine 20 mg 06/20/19 10:00 06/23/19 21:52 Pepcid PO 20 mg BID JUNE Administration Fluoxetine HCl 30 mg 06/21/19 10:00 06/23/19 09:39 Prozac PO 30 mg DAILY JUNE Administration Folic Acid 1 mg 06/21/19 10:00 06/23/19 09:39 Folvite PO 1 mg DAILY JUNE Administration Metoclopramide HCl 10 mg 06/19/19 22:28 06/20/19 01:53 Reglan IV 10 mg Q6H PRN Administration Nausea And Vomiting Morphine Sulfate 2 mg 06/19/19 22:28 06/23/19 21:53 Morphine IV 2 mg Q4H PRN Administration Pain, Moderate (4-6) Ondansetron HCl 4 mg 06/19/19 22:28 Zofran IV Q8H PRN Nausea And Vomiting Sodium Chloride 10 ml 06/20/19 10:00 06/23/19 21:53 Sodium Chloride Flush Syringe 10 Ml IV 10 ml BID JUNE Administration Sodium Chloride 10 ml 06/19/19 22:28 Sodium Chloride Flush Syringe 10 Ml IV PRN PRN LINE FLUSH Tramadol HCl 50 mg 06/20/19 23:06 06/23/19 09:45 Ultram PO 50 mg Q6H PRN Administration Pain , Severe (7-10) Trazodone HCl 100 mg 06/20/19 23:06 06/22/19 21:11 Desyrel PO 100 mg HS PRN Administration Sleep Nutrition/Malnutrition Assess - Dietary Evaluation Nutrition/Malnutrition Findings: Nutrition Notes Start: 06/20/19 10:34 Freq: Status: Active Protocol: Document 06/22/19 11:46 DW (Rec: 06/22/19 12:36 DW [email or web address]) Co-Sign 06/22/19 11:46 LP Nutrition Notes Initial or Follow up Reassessment Current Diagnosis Hypertension,Stroke Other Pertinent Diagnosis Stage 2 sacral wound Current Diet Cardiac Diet Labs/Tests Reviewed Pertinent Medications Reviewed Height 5 ft 9 in Weight 73 kg [place] Body Weight (kg) 72.72 BMI 23.8 Subjective/Other Information Pt stated that his appetite is improving and is feeling better. Pt was consuming breakfast upon arrival. Per pt care, pt consumed 75% breakfast, 100% lunch and 0% dinner on 06/21/19. Pt drinking 100% ONS Percent of energy/protein needs met: 100%/72% Burn Absent Trauma Absent GI Symptoms None Minimum of two criteria No #1 Nutrition Diagnosis Increased nutrient needs ( specify in comment below) Comments: PRO Diagnosis Progress(for reassessment Continues documentation) Is patient on ventilator? No Is Patient Ambulatory and/or Out of Bed No REE-([facility]-confined to bed) 1758.378 Calculation Used for Recommendations [facility] Additional Notes PRO needs: 92-110 g (1.25-1.5 g/kg) Fluid needs: 1 mL/kcal Nutrition Intervention Change Diet Order: Continue Current Diet Add Supplement/Snack (indicate name/kcal Ensure Enlive BID /protein ) Provides kCal: 700 Provides Protein (gm) 40 Goal #1 Meet atleast 75% of kcal/PRO needs via PO/ONS Goal #2 Wound healing Anticipated Discharge Needs: Cardiac Diet with ONS daily Follow-Up By: 06/27/19 Additional Comments FU PO/ONS intake
[2019-06-24] MEDS: FLUoxetine 10 MG TAB PO SCH (10:44)
[2019-06-24] MEDS: FAMOTIDINE 20 MG TAB PO SCH ×2 (10:45→22:54)
[2019-06-24] MEDS: FOLIC ACID 1 MG TAB PO SCH (10:45)
[2019-06-24] MEDS: MORPHINE 2 MG/1 ML INJ IV PRN ×2 (15:31→22:55)
[2019-06-24] MEDS: traZODone 100 MG TAB PO PRN (22:54)
--- NOTE | 2019-06-25 11:10 | Progress Note ---
Assessment and Plan Assessment and plan: 54-year-old male with 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 Patient presented to the emergency room via EMS stating that he has been having generalized weakness and pain on the right side upper extremity side and lower extremity on the right side. Patient also added that his is unable to take care of him at home because of his significant weakness.. Past Medical History Previous Medical History?: Yes Hx CVA: Yes--Hemorrhagic stroke Total L side paralysis Brain aneurysm (1) Debility Current Visit: Yes Status: Acute Plan to address problem: Patient had stroke on February 10 sec to Aneurysmal bleed.Unable to take care of himself and requests SNF placement for further for further rehab.Says cannot take care of him. Has dense L Hemiplegia (2) CVA (cerebrovascular accident due to intracerebral hemorrhage) Current Visit: Yes Status: Chronic Qualifiers: Intracerebral hemorrhage etiology: nontraumatic Laterality: right Plan to address problem: Happened on Feb 10 2019 Now dense Hemiplegia on L side Needs further rehab (3) Hypomagnesemia Current Visit: Yes Status: Acute Plan to address problem: supllemented (4) Malnutrition Current Visit: Yes Status: Chronic Qualifiers: Protein-calorie malnutrition severity: mild Plan to address problem: Dietitian consult (5) DVT prophylaxis Current Visit: Yes Status: Acute Plan to address problem: on [facility]'s Disposition; pending SNF placement History Interval history: Patient was seen and evaluated this morning. Patient admitted here for placement. Hospitalist Physical - Physical exam Narrative exam: Not in cardiopulmonary distress. The patient appeared well nourished and normally developed. Vital signs as documented. Head exam is unremarkable. No scleral icterus . Neck is without jugular venous distension, thyromegaly, or carotid bruits. Lungs are clear to auscultation. Cardiac exam reveals regular rate and Rhythm. First and second heart sounds normal. No murmurs, rubs or gallops. Abdominal exam reveals normal bowel sounds, no masses, no organomegaly and no aortic enlargement. Extremities are nonedematous and both femoral and pedal pulses are normal. POEM WRITER: Alert and oriented 3. Left-sided hemiplegia Hospitalist Physical - Constitutional Vitals: Temp Pulse Resp BP Pulse Ox 97.2 F L 108 H 18 124/85 97 06/25/19 04:53 06/25/19 04:53 06/25/19 04:53 06/25/19 04:53 06/25/19 04:53 General appearance: Present: no acute distress, well-nourished Results - Labs CBC & Chem 7: 06/20/19 04:43 06/20/19 04:43 Labs: Laboratory Last Values WBC 3.3 K/mm3 (4.5-11.0) L 06/20/19 04:43 RBC 3.58 M/mm3 (3.65-5.03) L 06/20/19 04:43 Hgb 11.0 gm/dl (11.8-15.2) L 06/20/19 04:43 Hct 33.1 % (35.5-45.6) L 06/20/19 04:43 MCV 93 fl (84-94) 06/20/19 04:43 MCH 31 pg (28-32) 06/20/19 04:43 MCHC 33 % (32-34) 06/20/19 04:43 RDW 14.5 % (13.2-15.2) 06/20/19 04:43 Plt Count 154 K/mm3 (140-440) 06/20/19 04:43 Lymph % (Auto) 33.0 % (13.4-35.0) 06/20/19 04:43 [place] % (Auto) 11.8 % (0.0-7.3) H 06/20/19 04:43 Eos % (Auto) 3.1 % (0.0-4.3) 06/20/19 04:43 Baso % (Auto) 0.7 % (0.0-1.8) 06/20/19 04:43 Lymph # 1.1 K/mm3 (1.2-5.4) L 06/20/19 04:43 [place] # 0.4 K/mm3 (0.0-0.8) 06/20/19 04:43 Eos # 0.1 K/mm3 (0.0-0.4) 06/20/19 04:43 Baso # 0.0 K/mm3 (0.0-0.1) 06/20/19 04:43 Seg Neutrophils % 51.4 % (40.0-70.0) 06/20/19 04:43 Seg Neutrophils # 1.7 K/mm3 (1.8-7.7) L 06/20/19 04:43 Sodium 135 mmol/L (137-145) L 06/20/19 04:43 Potassium 3.7 mmol/L (3.6-5.0) 06/20/19 04:43 Chloride 96.8 mmol/L (98-107) L 06/20/19 04:43 Carbon Dioxide 23 mmol/L (22-30) 06/20/19 04:43 Anion Gap 19 mmol/L 06/20/19 04:43 BUN 9 mg/dL (9-20) 06/20/19 04:43 Creatinine 0.6 mg/dL (0.8-1.5) L 06/20/19 04:43 Estimated GFR > 60 ml/min 06/20/19 04:43 BUN/Creatinine Ratio 15 % 06/20/19 04:43 Glucose 74 mg/dL (75-100) L 06/20/19 04:43 Hemoglobin A1c 5.6 % (4-6) 06/19/19 22:44 Calcium 9.2 mg/dL (8.4-10.2) 06/20/19 04:43 Magnesium 1.50 mg/dL (1.7-2.3) L 06/19/19 14:49 Total Bilirubin 0.20 mg/dL (0.1-1.2) 06/20/19 04:43 Direct Bilirubin < 0.2 mg/dL (0-0.2) 06/19/19 14:49 Indirect Bilirubin 0.0 mg/dL 06/19/19 14:49 AST 13 units/L (5-40) 06/20/19 04:43 ALT 18 units/L (7-56) 06/20/19 04:43 Alkaline Phosphatase 67 units/L (35-129) 06/20/19 04:43 Troponin T < 0.010 ng/mL (0.00-0.029) 06/19/19 14:49 Total Protein 7.3 g/dL (6.3-8.2) 06/20/19 04:43 Albumin 3.5 g/dL (3.9-5) L 06/20/19 04:43 Albumin/Globulin Ratio 0.9 % 06/20/19 04:43 Urine Color Yellow (Yellow) 06/20/19 07:39 Urine Turbidity Clear (Clear) 06/20/19 07:39 Urine pH 6.0 (5.0-7.0) 06/20/19 07:39 Ur Specific [place] 1.008 (1.003-1.030) 06/20/19 07:39 Urine Protein <15 mg/dl mg/dL (Negative) 06/20/19 07:39 Urine Glucose (UA) Neg mg/dL (Negative) 06/20/19 07:39 Urine Ketones Tr mg/dL (Negative) 06/20/19 07:39 Urine Blood Neg (Negative) 06/20/19 07:39 Urine Nitrite Neg (Negative) 06/20/19 07:39 Urine Bilirubin Neg (Negative) 06/20/19 07:39 Urine Urobilinogen < 2.0 mg/dL (<2.0) 06/20/19 07:39 Ur Leukocyte Esterase Neg (Negative) 06/20/19 07:39 Urine WBC (Auto) < 1.0 /HPF (0.0-6.0) 06/20/19 07:39 Urine RBC (Auto) < 1.0 /HPF (0.0-6.0) 06/20/19 07:39 Active Medications - Current Medications Current Medications: Generic Name Dose Route Start Last Admin Trade Name Freq PRN Reason Stop Dose Admin Acetaminophen 650 mg 06/19/19 22:28 Tylenol PO Q4H PRN Pain MILD(1-3)/Fever >100.5/VALLADARES Famotidine 20 mg 06/20/19 10:00 06/24/19 22:54 Pepcid PO 20 mg BID JUNE Administration Fluoxetine HCl 30 mg 06/21/19 10:00 06/24/19 10:44 Prozac PO 30 mg DAILY JUNE Administration Folic Acid 1 mg 06/21/19 10:00 06/24/19 10:45 Folvite PO 1 mg DAILY JUNE Administration Metoclopramide HCl 10 mg 06/19/19 22:28 06/20/19 01:53 Reglan IV 10 mg Q6H PRN Administration Nausea And Vomiting Morphine Sulfate 2 mg 06/19/19 22:28 06/24/19 22:55 Morphine IV 2 mg Q4H PRN Administration Pain, Moderate (4-6) Ondansetron HCl 4 mg 06/19/19 22:28 Zofran IV Q8H PRN Nausea And Vomiting Sodium Chloride 10 ml 06/20/19 10:00 06/24/19 22:55 Sodium Chloride Flush Syringe 10 Ml IV 10 ml BID JUNE Administration Sodium Chloride 10 ml 06/19/19 22:28 Sodium Chloride Flush Syringe 10 Ml IV PRN PRN LINE FLUSH Tramadol HCl 50 mg 06/20/19 23:06 06/23/19 09:45 Ultram PO 50 mg Q6H PRN Administration Pain , Severe (7-10) Trazodone HCl 100 mg 06/20/19 23:06 06/24/19 22:54 Desyrel PO 100 mg HS PRN Administration Sleep Nutrition/Malnutrition Assess - Dietary Evaluation Nutrition/Malnutrition Findings: Nutrition Notes Start: 06/20/19 10:34 Freq: Status: Active Protocol: Document 06/22/19 11:46 DW (Rec: 06/22/19 12:36 DW [email or web address]) Co-Sign 06/22/19 11:46 LP Nutrition Notes Initial or Follow up Reassessment Current Diagnosis Hypertension,Stroke Other Pertinent Diagnosis Stage 2 sacral wound Current Diet Cardiac Diet Labs/Tests Reviewed Pertinent Medications Reviewed Height 5 ft 9 in Weight 73 kg [place] Body Weight (kg) 72.72 BMI 23.8 Subjective/Other Information Pt stated that his appetite is improving and is feeling better. Pt was consuming breakfast upon arrival. Per pt care, pt consumed 75% breakfast, 100% lunch and 0% dinner on 06/21/19. Pt drinking 100% ONS Percent of energy/protein needs met: 100%/72% Burn Absent Trauma Absent GI Symptoms None Minimum of two criteria No #1 Nutrition Diagnosis Increased nutrient needs ( specify in comment below) Comments: PRO Diagnosis Progress(for reassessment Continues documentation) Is patient on ventilator? No Is Patient Ambulatory and/or Out of Bed No REE-([facility]-confined to bed) 5373.299 Calculation Used for Recommendations [facility] Additional Notes PRO needs: 92-110 g (1.25-1.5 g/kg) Fluid needs: 1 mL/kcal Nutrition Intervention Change Diet Order: Continue Current Diet Add Supplement/Snack (indicate name/kcal Ensure Enlive BID /protein ) Provides kCal: 700 Provides Protein (gm) 40 Goal #1 Meet atleast 75% of kcal/PRO needs via PO/ONS Goal #2 Wound healing Anticipated Discharge Needs: Cardiac Diet with ONS daily Follow-Up By: 06/27/19 Additional Comments FU PO/ONS intake
[2019-06-25] MEDS: MORPHINE 2 MG/1 ML INJ IV PRN ×3 (11:32→21:45)
[2019-06-25] MEDS: FLUoxetine 10 MG TAB PO SCH (11:32)
[2019-06-25] MEDS: FOLIC ACID 1 MG TAB PO SCH (11:32)
[2019-06-25] MEDS: FAMOTIDINE 20 MG TAB PO SCH ×2 (11:32→21:24)
[2019-06-25] MEDS: traZODone 100 MG TAB PO PRN (21:24)
[2019-06-26] MEDS: FLUoxetine 10 MG TAB PO SCH (09:14)
[2019-06-26] MEDS: MORPHINE 2 MG/1 ML INJ IV PRN (09:14)
[2019-06-26] MEDS: FOLIC ACID 1 MG TAB PO SCH (09:14)
[2019-06-26] MEDS: FAMOTIDINE 20 MG TAB PO SCH ×2 (09:14→21:51)
--- NOTE | 2019-06-26 10:25 | Discharge Summary ---
Providers - Providers Date of Admission: 06/19/19 16:24 Attending physician: LASHANDA PIEDRA MD 06/19/19 14:45 Consult to Case Management [CONS] Stat Services Needed at Discharge: Boot Repairer Notified:: no 06/19/19 19:43 Consult to Wound/ET Nurse [CONS] Routine Reason For Exam: wound eval 06/19/19 22:28 Consult to Physician [CONS] Routine Comment: Consulting Provider: JANEL LAGOS Physician Instructions: Reason For Exam: old CVA 06/19/19 22:32 Physical Therapy Evaluation and Treat [CONS] Routine Comment: Reason For Exam: cva with l hemiplegia 06/20/19 07:22 Consult to Dietitian/Nutrition [CONS] Routine Physician Instructions: Reason For Exam: Reason for Consult: Nutrition Recommendations Reason for Consult: Malnutrition Primary care physician: LEHR TENDER Hospitalization Condition: Stable Hospital course: 54-year-old man with history of stroke in January left hemiparesis causing who presented to the hospital worsening generalized weakness after that his was unable to take care of him. Patient received physical therapy, his electrolytes were repleted, he received dietitian consult. He was planned for subacute rehab placement, patient could not afford the co-pay and therefore elected to go home with home hospice. Diagnosis Debility Ambulatory dysfunction History of CVA in January 2019 Hypomagnesemia Moderate malnutrition Disposition: [id number]/TX-06 HOME UNDER [facility] Time spent for discharge: 33 min Core Measure Documentation - Palliative Care Palliative Care/ Comfort Measures: Not Applicable - Core Measures Any of the following diagnoses?: none Exam - Constitutional Vitals: Temp Pulse Resp BP Pulse Ox 97.6 F 111 H 18 133/80 99 06/26/19 05:02 06/26/19 05:02 06/26/19 05:02 06/26/19 05:02 06/26/19 05:02 General appearance: Present: no acute distress, well-nourished - EENT Eyes: Present: PERRL ENT: hearing intact, clear oral mucosa - Neck Neck: Present: supple, normal ROM - Respiratory Respiratory effort: normal Respiratory: bilateral: CTA - Cardiovascular Heart Sounds: Present: S1 & S2. Absent: rub, click - Extremities Extremities: pulses symmetrical, No edema Peripheral Pulses: within normal limits - Abdominal General gastrointestinal: Present: soft, non-tender, non-distended, normal bowel sounds Male genitourinary: Present: normal - Integumentary Integumentary: Present: clear, warm, dry - Musculoskeletal Musculoskeletal: strength equal bilaterally, generalized weakness - Psychiatric Psychiatric: appropriate mood/affect, intact judgment & insight - Neurologic Neurologic: CNII-XII intact, focal deficits (Left), moves all extremities Plan Follow up with: PRIMARY CARE,MD [Primary Care Provider] - 3-5 Days Prescriptions: Metoprolol [Lopressor TAB] 25 mg PO BID #60 tablet traMADol 50 mg PO Q6H PRN #7 PRN Reason: Pain , Severe (7-10)
[2019-06-26] MEDS: traMADol 50 MG TAB PO PRN ×3 (14:31→20:47)
[2019-06-26] MEDS: METOPROLOL TARTRATE 25 MG TAB PO SCH ×2 (14:33→21:53)
[2019-06-26] MEDS: traZODone 100 MG TAB PO PRN (21:51)
--- NOTE | 2019-06-26 23:54 | Progress Note ---
Assessment and Plan Assessment and plan: 54-year-old male with 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 Patient presented to the emergency room via EMS stating that he has been having generalized weakness and pain on the right side upper extremity side and lower extremity on the right side. Patient also added that his is unable to take care of him at home because of his significant weakness.. Past Medical History Previous Medical History?: Yes Hx CVA: Yes--Hemorrhagic stroke Total L side paralysis Brain aneurysm (1) Debility Current Visit: Yes Status: Acute Plan to address problem: Patient had stroke on February 10 sec to Aneurysmal bleed.Unable to take care of himself and requests SNF placement for further for further rehab.Says cannot take care of him. Has dense L Hemiplegia (2) CVA (cerebrovascular accident due to intracerebral hemorrhage) Current Visit: Yes Status: Chronic Qualifiers: Intracerebral hemorrhage etiology: nontraumatic Laterality: right Plan to address problem: Happened on Feb 10 2019 Now dense Hemiplegia on L side Needs further rehab (3) Hypomagnesemia Current Visit: Yes Status: Acute Plan to address problem: supllemented (4) Malnutrition Current Visit: Yes Status: Chronic Qualifiers: Protein-calorie malnutrition severity: mild Plan to address problem: Dietitian consult (5) DVT prophylaxis Current Visit: Yes Status: Acute Plan to address problem: on Scd's Disposition; pending SNF placement History Interval history: Patient was seen and evaluated this morning. Patient admitted here for placement. Hospitalist Physical - Physical exam Narrative exam: Not in cardiopulmonary distress. The patient appeared well nourished and normally developed. Vital signs as documented. Head exam is unremarkable. No scleral icterus . Neck is without jugular venous distension, thyromegaly, or carotid bruits. Lungs are clear to auscultation. Cardiac exam reveals regular rate and Rhythm. First and second heart sounds normal. No murmurs, rubs or gallops. Abdominal exam reveals normal bowel sounds, no masses, no organomegaly and no aortic enlargement. Extremities are nonedematous and both femoral and pedal pulses are normal. PROP WORKER: Alert and oriented 3. Left-sided hemiplegia Hospitalist Physical - Constitutional Vitals: Temp Pulse Resp BP Pulse Ox 97.8 F 68 15 144/97 99 06/26/19 18:07 06/26/19 21:53 06/26/19 18:07 06/26/19 21:53 06/26/19 18:07 General appearance: Present: no acute distress, well-nourished Results - Labs CBC & Chem 7: 06/20/19 04:43 06/20/19 04:43 Labs: Laboratory Last Values WBC 3.3 K/mm3 (4.5-11.0) L 06/20/19 04:43 RBC 3.58 M/mm3 (3.65-5.03) L 06/20/19 04:43 Hgb 11.0 gm/dl (11.8-15.2) L 06/20/19 04:43 Hct 33.1 % (35.5-45.6) L 06/20/19 04:43 MCV 93 fl (84-94) 06/20/19 04:43 MCH 31 pg (28-32) 06/20/19 04:43 MCHC 33 % (32-34) 06/20/19 04:43 RDW 14.5 % (13.2-15.2) 06/20/19 04:43 Plt Count 154 K/mm3 (140-440) 06/20/19 04:43 Lymph % (Auto) 33.0 % (13.4-35.0) 06/20/19 04:43 [place] % (Auto) 11.8 % (0.0-7.3) H 06/20/19 04:43 Eos % (Auto) 3.1 % (0.0-4.3) 06/20/19 04:43 Baso % (Auto) 0.7 % (0.0-1.8) 06/20/19 04:43 Lymph # 1.1 K/mm3 (1.2-5.4) L 06/20/19 04:43 [place] # 0.4 K/mm3 (0.0-0.8) 06/20/19 04:43 Eos # 0.1 K/mm3 (0.0-0.4) 06/20/19 04:43 Baso # 0.0 K/mm3 (0.0-0.1) 06/20/19 04:43 Seg Neutrophils % 51.4 % (40.0-70.0) 06/20/19 04:43 Seg Neutrophils # 1.7 K/mm3 (1.8-7.7) L 06/20/19 04:43 Sodium 135 mmol/L (137-145) L 06/20/19 04:43 Potassium 3.7 mmol/L (3.6-5.0) 06/20/19 04:43 Chloride 96.8 mmol/L (98-107) L 06/20/19 04:43 Carbon Dioxide 23 mmol/L (22-30) 06/20/19 04:43 Anion Gap 19 mmol/L 06/20/19 04:43 BUN 9 mg/dL (9-20) 06/20/19 04:43 Creatinine 0.6 mg/dL (0.8-1.5) L 06/20/19 04:43 Estimated GFR > 60 ml/min 06/20/19 04:43 BUN/Creatinine Ratio 15 % 06/20/19 04:43 Glucose 74 mg/dL (75-100) L 06/20/19 04:43 Hemoglobin A1c 5.6 % (4-6) 06/19/19 22:44 Calcium 9.2 mg/dL (8.4-10.2) 06/20/19 04:43 Magnesium 1.50 mg/dL (1.7-2.3) L 06/19/19 14:49 Total Bilirubin 0.20 mg/dL (0.1-1.2) 06/20/19 04:43 Direct Bilirubin < 0.2 mg/dL (0-0.2) 06/19/19 14:49 Indirect Bilirubin 0.0 mg/dL 06/19/19 14:49 AST 13 units/L (5-40) 06/20/19 04:43 ALT 18 units/L (7-56) 06/20/19 04:43 Alkaline Phosphatase 67 units/L (35-129) 06/20/19 04:43 Troponin T < 0.010 ng/mL (0.00-0.029) 06/19/19 14:49 Total Protein 7.3 g/dL (6.3-8.2) 06/20/19 04:43 Albumin 3.5 g/dL (3.9-5) L 06/20/19 04:43 Albumin/Globulin Ratio 0.9 % 06/20/19 04:43 Urine Color Yellow (Yellow) 06/20/19 07:39 Urine Turbidity Clear (Clear) 06/20/19 07:39 Urine pH 6.0 (5.0-7.0) 06/20/19 07:39 Ur Specific [place] 1.008 (1.003-1.030) 06/20/19 07:39 Urine Protein <15 mg/dl mg/dL (Negative) 06/20/19 07:39 Urine Glucose (UA) Neg mg/dL (Negative) 06/20/19 07:39 Urine Ketones Tr mg/dL (Negative) 06/20/19 07:39 Urine Blood Neg (Negative) 06/20/19 07:39 Urine Nitrite Neg (Negative) 06/20/19 07:39 Urine Bilirubin Neg (Negative) 06/20/19 07:39 Urine Urobilinogen < 2.0 mg/dL (<2.0) 06/20/19 07:39 Ur Leukocyte Esterase Neg (Negative) 06/20/19 07:39 Urine WBC (Auto) < 1.0 /HPF (0.0-6.0) 06/20/19 07:39 Urine RBC (Auto) < 1.0 /HPF (0.0-6.0) 06/20/19 07:39 Active Medications - Current Medications Current Medications: Generic Name Dose Route Start Last Admin Trade Name Freq PRN Reason Stop Dose Admin Acetaminophen 650 mg 06/19/19 22:28 06/26/19 17:24 Tylenol PO 650 mg Q4H PRN Administration Pain MILD(1-3)/Fever >100.5/VALLADARES Famotidine 20 mg 06/20/19 10:00 06/26/19 21:51 Pepcid PO 20 mg BID JUNE Administration Fluoxetine HCl 30 mg 06/21/19 10:00 06/26/19 09:14 Prozac PO 30 mg DAILY JUNE Administration Folic Acid 1 mg 06/21/19 10:00 06/26/19 09:14 Folvite PO 1 mg DAILY JUNE Administration Metoclopramide HCl 10 mg 06/19/19 22:28 06/20/19 01:53 Reglan IV 10 mg Q6H PRN Administration Nausea And Vomiting Metoprolol Tartrate 25 mg 06/26/19 11:00 06/26/19 21:53 Lopressor PO 25 mg BID JUNE Administration Ondansetron HCl 4 mg 06/19/19 22:28 Zofran IV Q8H PRN Nausea And Vomiting Sodium Chloride 10 ml 06/20/19 10:00 06/26/19 21:52 Sodium Chloride Flush Syringe 10 Ml IV 10 ml BID JUNE Administration Sodium Chloride 10 ml 06/19/19 22:28 Sodium Chloride Flush Syringe 10 Ml IV PRN PRN LINE FLUSH Tramadol HCl 50 mg 06/20/19 23:06 06/26/19 20:47 Ultram PO 50 mg Q6H PRN Administration Pain , Severe (7-10) Trazodone HCl 100 mg 06/20/19 23:06 06/26/19 21:51 Desyrel PO 100 mg HS PRN Administration Sleep Nutrition/Malnutrition Assess - Dietary Evaluation Nutrition/Malnutrition Findings: Nutrition Notes Start: 06/20/19 10:34 Freq: Status: Active Protocol: Document 06/26/19 11:39 PS (Rec: 06/26/19 12:18 PS [id number]) Co-Sign 06/26/19 11:39 LP Nutrition Notes Initial or Follow up Brief Note Current Diagnosis Hypertension,Stroke Other Pertinent Diagnosis Stage 2 sacral wound Current Diet Cardiac Diet Height 5 ft 9 in Weight 77.2 kg [place] Body Weight (kg) 72.72 BMI 25.1 Subjective/Other Information Wt incorrect in chart. Nutrition Intervention Anticipated Discharge Needs: Cardiac Diet with ONS daily Follow-Up By: 06/27/19 Additional Comments FU PO/ONS intake
[2019-06-27] MEDS: traMADol 50 MG TAB PO PRN ×3 (08:15→18:35)
[2019-06-27] MEDS: FAMOTIDINE 20 MG TAB PO SCH (09:56)
[2019-06-27] MEDS: METOPROLOL TARTRATE 25 MG TAB PO SCH (09:56)
[2019-06-27] MEDS: FOLIC ACID 1 MG TAB PO SCH (09:56)
[2019-06-27] MEDS: FLUoxetine 10 MG TAB PO SCH (09:56)
[2019-06-27 12:11] VITALS: BP 106/72
== END 2019-06-27 18:47 | disposition home or self-care (01) | DRG 57 ==
LOC: ED 13:40 → 3A 16:24
PROVIDERS: ADMIT Internal Medicine; ATTEND Internal Medicine
DX: I69.354 Hemiplegia and hemiparesis following cerebral infarction affecting left non-dominant side (principal); E44.1 Mild protein-calorie malnutrition; E83.42 Hypomagnesemia; R26.9 Unspecified abnormalities of gait and mobility; I10 Essential (primary) hypertension; R53.81 Other malaise; G89.29 Other chronic pain; Z68.25 Body mass index [BMI] 25.0-25.9, adult
CPT/HCPCS: 36415; 80048; 80053; 80076; 81001; 83036; 83735; 84484; 85025; 87116; 93005; 93010; 96361; 96374; 96375; G0378; J2270; J2405; J2765; J3475; J7030

== ENCOUNTER 2021-08-28 10:25 | Emergency (ER) | payer MEDICARE ==
[2021-08-28] MEDS ORDERED: MORPHINE 4 MG/1 ML INJ IV ONE ×2 (12:45→15:21)
[2021-08-28] MEDS ORDERED: KETOROLAC 30 MG/1 ML INJ IV ONE (12:45)
[2021-08-28] MEDS ORDERED: diazePAM 10 MG/2 ML SYRINGE IV ONE (12:45)
--- NOTE | 2021-08-28 13:13 | XRay Report ---
CHEST 1 VIEW 08/28/2021 12:56 PM INDICATION / CLINICAL INFORMATION: Chest Pain. COMPARISON: None available. FINDINGS: SUPPORT DEVICES: None. HEART / MEDIASTINUM: No significant abnormality. LUNGS / PLEURA: No significant pulmonary or pleural abnormality. No pneumothorax. ADDITIONAL FINDINGS: No significant additional findings. IMPRESSION: 1. No acute findings. Signer Name: Josef Palomino MD Signed: 08/28/2021 1:09 PM Workstation Name: [id number]
[2021-08-28 14:27] LABS: Basophils % (Auto) 0.3 % (0.0-1.8); Eosinophils # (Auto) 0.2 K/mm3 (0.0-0.4); Eosinophils % (Auto) 3.3 % (0.0-4.3); Hematocrit 34.8 % (35.5-45.6); Hemoglobin 11.3 gm/dl (11.8-15.2); Lymphocytes # (Auto) 1.1 K/mm3 (1.2-5.4); Lymphocytes % (Auto) 18.1 % (13.4-35.0); Mean Corpuscular HGB Conc 33 % (32-34); Mean Corpuscular Volume 96 fl (84-94); Monocytes # (Auto) 0.6 K/mm3 (0.0-0.8); Monocytes % (Auto) 9.3 % (0.0-7.3); Platelet Count 170 K/mm3 (140-440); Red Blood Count 3.63 M/mm3 (3.65-5.03); Red Cell Distribution Width 13.3 % (13.2-15.2)
--- NOTE | 2021-08-28 14:44 | Emergency Department Report ---
ED Chest Pain HPI - General Chief Complaint: Dyspnea/Respdistress Stated Complaint: Back pain/SOB Time Seen by Provider: 08/28/21 12:37 Source: patient Mode of arrival: Stretcher Limitations: No Limitations - History of Present Illness Initial Comments: 56-year-old male with a past medical history of COPD with night oxygen use, CVA with residual left-sided deficits, lupus, hypertension, and atrial fibrillation presents complaining of left-sided chest, left arm, and leg pain with intermittent spasms. Pain 7/10 intensity. Pain is worse with movement. Patient states he feels like intermittent muscle spasms exacerbated with movement which take his breath away. He denies nausea, vomiting, diaphoresis. Has been compliant with medications. Denies cough or cold symptoms or fever. Automatic Drill Operator: Dr. Gray Severity scale (0 -10): 10 - Related Data Home Medications Medication Instructions Recorded Confirmed Last Taken FLUoxetine 3 mg PO DAILY 06/20/19 06/20/19 Unknown Folic Acid 1 mg PO DAILY 06/20/19 06/20/19 Unknown traZODone 100 mg PO HS PRN 06/20/19 06/20/19 Unknown Previous Rx's Medication Instructions Recorded Last Taken Type Metoprolol [Lopressor TAB] 25 mg PO BID #60 tablet 06/26/19 Unknown Rx traMADol 50 mg PO Q6H PRN #7 06/26/19 Unknown Rx Allergies Allergy/AdvReac Type Severity Reaction Status Date / Time No Known Allergies Allergy Unverified 08/28/21 10:30 Heart Score - HEART Score History: Slightly suspicious EKG: Non-specific Age: 45-65 Risk factors: 1-2 risk factors Troponin: < normal limit HEART Score: 3 ED Review of Systems ROS: Stated complaint: Back pain/SOB Other details as noted in HPI ED Past Medical Hx - Past Medical History Previous Medical History?: Yes Hx Hypertension: Yes Hx CVA: Yes (left sided deficit) Additional medical history: Lupus, Afib - Social History Smoking Status: Unknown if ever smoked - Medications Home Medications: Home Medications Medication Instructions Recorded Confirmed Last Taken Type FLUoxetine 3 mg PO DAILY 06/20/19 06/20/19 Unknown History Folic Acid 1 mg PO DAILY 06/20/19 06/20/19 Unknown History traZODone 100 mg PO HS PRN 06/20/19 06/20/19 Unknown History Metoprolol [Lopressor TAB] 25 mg PO BID #60 tablet 06/26/19 Unknown Rx traMADol 50 mg PO Q6H PRN #7 06/26/19 Unknown Rx ED Physical Exam - General Limitations: No Limitations ED Course Vital Signs 08/28/21 08/28/21 08/28/21 10:25 12:51 13:30 Temperature 98.6 F Pulse Rate 47 L 48 L Respiratory 16 18 15 Rate Blood Pressure 148/83 Blood Pressure 182/95 [Left] O2 Sat by Pulse 96 100 97 Oximetry 08/28/21 08/28/21 14:00 14:04 Temperature 98.4 F Pulse Rate 46 L Respiratory 14 Rate Blood Pressure 109/75 Blood Pressure [Left] O2 Sat by Pulse 94 Oximetry ED Medical Decision Making - Lab Data Result diagrams: 08/28/21 13:25 - EKG Data -: EKG Interpreted by Tx EKG shows normal: sinus rhythm, intervals (RI interval slightly prolonged at 211), QRS complexes (QRS duration 98), ST-T waves (No STEMI) Rate: bradycardia (47) - EKG Data When compared to previous EKG there are: no significant change - Radiology Data Radiology results: report reviewed CHEST 1 VIEW 08/28/2021 12:56 PM INDICATION / CLINICAL INFORMATION: Chest Pain. COMPARISON: None available. FINDINGS: SUPPORT DEVICES: None. HEART / MEDIASTINUM: No significant abnormality. LUNGS / PLEURA: No significant pulmonary or pleural abnormality. No pneumothorax. ADDITIONAL FINDINGS: No significant additional findings. IMPRESSION: 1. No acute findings. Critical Care Time: No Critical care attestation.: If time is entered above; I have spent that time in minutes in the direct care of this critically ill patient, excluding procedure time. ED Disposition Condition: Stable Referrals: PRIMARY CARE, [Primary Care Provider] - 3-5 Days
[2021-08-28 15:07] LABS: BUN/Creatinine Ratio 15; Blood Urea Nitrogen 17 mg/dL (9-20); Calcium 9.1 mg/dL (8.4-10.2); Hemolysis Index 19
[2021-08-28 15:07] LABS: INR 1.05 (0.87-1.13)
--- NOTE | 2021-08-28 15:14 | Emergency Department Report ---
<HEBERT CONDE - Last Filed: 08/28/21 15:15> ED Back Pain/Injury HPI - General Chief Complaint: Dyspnea/Respdistress Stated Complaint: Back pain/SOB Time Seen by Provider: 08/28/21 12:37 Source: patient Limitations: No Limitations - History of Present Illness Initial Comments: 56-year-old male with a past medical history of COPD with night oxygen use, CVA with residual left-sided deficits, lupus, hypertension, and atrial fibrillation presents complaining of left flank and lower back rated 7/10 intensity. Pain is worse with movement. Patient states he might of injured his side while coughing up some phlegm yesterday. Patient states he feels like intermittent muscle spasms exacerbated with movement which take his breath away. Pain is also worse with lifting left leg. He denies nausea, vomiting, diaphoresis, dysuria, or hematuria. Has been compliant with medications. Denies cough or cold symptoms or fever. Still Tender: Dr. Gray - Related Data Home Medications Medication Instructions Recorded Confirmed Last Taken FLUoxetine 3 mg PO DAILY 06/20/19 06/20/19 Unknown Folic Acid 1 mg PO DAILY 06/20/19 06/20/19 Unknown traZODone 100 mg PO HS PRN 06/20/19 06/20/19 Unknown Previous Rx's Medication Instructions Recorded Last Taken Type Metoprolol [Lopressor TAB] 25 mg PO BID #60 tablet 06/26/19 Unknown Rx traMADol 50 mg PO Q6H PRN #7 06/26/19 Unknown Rx Cyclobenzaprine [Flexeril] 10 mg PO TID PRN #20 tablet 08/28/21 Unknown Rx HYDROcodone/APAP 5-325 [[place] 1 each PO Q6HR PRN #14 tablet 08/28/21 Unknown Rx 5/325] Ibuprofen [Motrin] 800 mg PO Q8HR PRN #20 tablet 08/28/21 Unknown Rx Allergies Allergy/AdvReac Type Severity Reaction Status Date / Time No Known Allergies Allergy Unverified 08/28/21 10:30 ED Review of Systems Comment: All other systems reviewed and negative ED Past Medical Hx - Past Medical History Previous Medical History?: Yes Hx Hypertension: Yes Hx CVA: Yes (left sided deficit) Additional medical history: Lupus, Afib - Social History Smoking Status: Unknown if ever smoked - Medications Home Medications: Home Medications Medication Instructions Recorded Confirmed Last Taken Type FLUoxetine 3 mg PO DAILY 06/20/19 06/20/19 Unknown History Folic Acid 1 mg PO DAILY 06/20/19 06/20/19 Unknown History traZODone 100 mg PO HS PRN 06/20/19 06/20/19 Unknown History Metoprolol [Lopressor TAB] 25 mg PO BID #60 tablet 06/26/19 Unknown Rx traMADol 50 mg PO Q6H PRN #7 06/26/19 Unknown Rx Cyclobenzaprine [Flexeril] 10 mg PO TID PRN #20 tablet 08/28/21 Unknown Rx HYDROcodone/APAP 5-325 [[place] 1 each PO Q6HR PRN #14 tablet 08/28/21 Unknown Rx 5/325] Ibuprofen [Motrin] 800 mg PO Q8HR PRN #20 tablet 08/28/21 Unknown Rx ED Physical Exam - General Limitations: No Limitations - Other Other exam information: General: No acute distress Head: Atraumatic Eyes: normal appearance ENT: Moist mucous membranes Neck: Normal appearance, no midline tenderness Chest: Clear to auscultation bilaterally CV: Regular rate and rhythm Abdomen: Soft, normal bowel sounds, nontender, nondistended, no rebound or guarding Back: Tenderness to left paraspinal muscles Extremity: Normal inspection, full range of motion Neuro: Alert O x 3, no facial asymmetry, speech clear, no gross motor sensory deficit Psych: Appropriate behavior Skin: No rash ED Course - Reevaluation(s) Reevaluation #1: 08/28/21 15:18 Pain has improved after morphine and Valium. Pain still present with movement ED Medical Decision Making - Lab Data Result diagrams: 08/28/21 13:25 08/28/21 13:25 - EKG Data -: EKG Interpreted by Me EKG shows normal: sinus rhythm, ST-T waves (no stemi) Rate: bradycardia (47) - Radiology Data Radiology results: report reviewed (cxr: naf) - Medical Decision Making Patient sent to Dr. Sherman follow-up UA, CT abdomen pelvis. Pain controlled and no acute findings patient be discharged on prescribed pain medications Critical Care Time: No ED Disposition Clinical Impression: Left flank pain, Back spasm Disposition: HOME / SELF CARE / HOMELESS Is pt being admited?: No Does the pt Need Aspirin: No Condition: Stable Instructions: Muscle Cramps and Spasms, [id number], Acute Back Pain, Adult Additional Instructions: Take the medication as prescribed. Follow-up with your doctor or doctor/clinic provided. Return if symptoms worsen as indicated by your discharge ins tructions. Prescriptions: Cyclobenzaprine [Flexeril] 10 mg PO TID PRN #20 tablet PRN Reason: Muscle Spasm Ibuprofen [Motrin] 800 mg PO Q8HR PRN #20 tablet PRN Reason: Pain , Severe (7-10) HYDROcodone/APAP 5-325 [[place] 5/325] 1 each PO Q6HR PRN #14 tablet PRN Reason: Pain Referrals: PRIMARY CARE, [Primary Care Provider] - 3-5 Days <LUPE SHERMAN - Last Filed: 08/28/21 17:32> ED Review of Systems ROS: Stated complaint: Back pain/SOB Other details as noted in HPI ED Course Vital Signs 08/28/21 08/28/21 08/28/21 10:25 12:51 13:30 Temperature 98.6 F Pulse Rate 47 L 48 L Respiratory 16 18 15 Rate Blood Pressure 148/83 Blood Pressure 182/95 [Left] O2 Sat by Pulse 96 100 97 Oximetry 08/28/21 08/28/21 08/28/21 14:00 14:04 14:30 Temperature 98.4 F Pulse Rate 46 L 42 L Respiratory 14 13 Rate Blood Pressure 109/75 109/75 Blood Pressure [Left] O2 Sat by Pulse 94 93 Oximetry 08/28/21 08/28/21 15:00 15:30 Temperature Pulse Rate 46 L 43 L Respiratory 12 10 L Rate Blood Pressure 148/83 148/83 Blood Pressure [Left] O2 Sat by Pulse 91 97 Oximetry ED Medical Decision Making - Lab Data Result diagrams: 08/28/21 13:25 08/28/21 13:25 Lab Results 08/28/21 08/28/21 08/28/21 Range/Units 13:18 13:25 13:25 WBC 6.2 (4.5-11.0) K/mm3 RBC 3.63 L (3.65-5.03) M/mm3 Hgb 11.3 L (11.8-15.2) gm/dl Hct 34.8 L (35.5-45.6) % MCV 96 H (84-94) fl MCH 31 (28-32) pg MCHC 33 (32-34) % RDW 13.3 (13.2-15.2) % Plt Count 170 (140-440) K/mm3 Lymph % (Auto) 18.1 (13.4-35.0) % [place] % (Auto) 9.3 H (0.0-7.3) % Eos % (Auto) 3.3 (0.0-4.3) % Baso % (Auto) 0.3 (0.0-1.8) % Lymph # (Auto) 1.1 L (1.2-5.4) K/mm3 [place] # (Auto) 0.6 (0.0-0.8) K/mm3 Eos # (Auto) 0.2 (0.0-0.4) K/mm3 Baso # (Auto) 0.0 (0.0-0.1) K/mm3 Seg Neutrophils % 69.0 (40.0-70.0) % Seg Neutrophils # 4.3 (1.8-7.7) K/mm3 PT 14.8 (12.2-14.9) Sec. INR 1.05 (0.87-1.13) Sodium 138 (137-145) mmol/L Potassium 4.4 (3.6-5.0) mmol/L Chloride 101.3 (98-107) mmol/L Carbon Dioxide 23 (22-30) mmol/L Anion Gap 18 mmol/L BUN 17 (9-20) mg/dL Creatinine 1.1 (0.8-1.3) mg/dL Estimated GFR > 60 ml/min BUN/Creatinine Ratio 15 % Glucose 84 (75-100) mg/dL Calcium 9.1 (8.4-10.2) mg/dL Magnesium (1.7-2.3) mg/dL Troponin T < 0.010 (0.00-0.029) ng/mL Urine Color (Yellow) Urine Turbidity (Clear) Urine pH (5.0-7.0) Ur Specific [place] (1.003-1.030) Urine Protein (Negative) mg/dL Urine Glucose (UA) (Negative) mg/dL Urine Ketones (Negative) mg/dL Urine Blood (Negative) Urine Nitrite (Negative) Urine Bilirubin (Negative) Urine Urobilinogen (<2.0) mg/dL Ur Leukocyte Esterase (Negative) Urine WBC (Auto) (0.0-6.0) /HPF Urine RBC (Auto) (0.0-6.0) /HPF 08/28/21 08/28/21 Range/Units 13:26 Unknown WBC (4.5-11.0) K/mm3 RBC (3.65-5.03) M/mm3 Hgb (11.8-15.2) gm/dl Hct (35.5-45.6) % MCV (84-94) fl MCH (28-32) pg MCHC (32-34) % RDW (13.2-15.2) % Plt Count (140-440) K/mm3 Lymph % (Auto) (13.4-35.0) % [place] % (Auto) (0.0-7.3) % Eos % (Auto) (0.0-4.3) % Baso % (Auto) (0.0-1.8) % Lymph # (Auto) (1.2-5.4) K/mm3 [place] # (Auto) (0.0-0.8) K/mm3 Eos # (Auto) (0.0-0.4) K/mm3 Baso # (Auto) (0.0-0.1) K/mm3 Seg Neutrophils % (40.0-70.0) % Seg Neutrophils # (1.8-7.7) K/mm3 PT (12.2-14.9) Sec. INR (0.87-1.13) Sodium (137-145) mmol/L Potassium (3.6-5.0) mmol/L Chloride (98-107) mmol/L Carbon Dioxide (22-30) mmol/L Anion Gap mmol/L BUN (9-20) mg/dL Creatinine (0.8-1.3) mg/dL Estimated GFR ml/min BUN/Creatinine Ratio % Glucose (75-100) mg/dL Calcium (8.4-10.2) mg/dL Magnesium 1.80 (1.7-2.3) mg/dL Troponin T (0.00-0.029) ng/mL Urine Color Yellow (Yellow) Urine Turbidity Clear (Clear) Urine pH 6.0 (5.0-7.0) Ur Specific [place] 1.012 (1.003-1.030) Urine Protein <15 mg/dl (Negative) mg/dL Urine Glucose (UA) Neg (Negative) mg/dL Urine Ketones Neg (Negative) mg/dL Urine Blood Neg (Negative) Urine Nitrite Neg (Negative) Urine Bilirubin Neg (Negative) Urine Urobilinogen < 2.0 (<2.0) mg/dL Ur Leukocyte Esterase Neg (Negative) Urine WBC (Auto) 2.0 (0.0-6.0) /HPF Urine RBC (Auto) 1.0 (0.0-6.0) /HPF - Radiology Data Radiology results: report reviewed CT ABDOMEN AND PELVIS WITHOUT CONTRAST INDICATION / CLINICAL INFORMATION: left flank pain. TECHNIQUE: Axial CT images were obtained through the abdomen and pelvis without IV contrast. All CT scans at this location are performed using CT dose reduction for ALARA by means of automated exposure control. COMPARISON: None available. FINDINGS: LOWER CHEST: No significant abnormality. LIVER: No significant abnormality. GALLBLADDER: No significant abnormality. BILE DUCTS: No significant abnormality. PANCREAS: No significant abnormality. SPLEEN: No significant abnormality. ADRENALS: No significant abnormality. RIGHT KIDNEY / URETER: No significant abnormality. LEFT KIDNEY / URETER: No stones or hydronephrosis. Small cortical hypodensities likely representing cysts. STOMACH / SMALL BOWEL: No significant abnormality. COLON: Diverticulosis without acute inflammation. APPENDIX: No significant abnormality. PERITONEUM: No free fluid. No free air. No fluid collection. LYMPH NODES: No significant adenopathy. AORTA / ARTERIES: Mild atherosclerotic calcification without acute abnormality. IVC / VEINS: No significant abnormality. URINARY BLADDER: No significant abnormality. REPRODUCTIVE ORGANS: No significant abnormality. ADDITIONAL FINDINGS: None. SKELETAL SYSTEM: No significant abnormality. IMPRESSION: 1. No inflammatory pr ocess or bowel obstruction. 2. No urinary tract stones or hydronephrosis. - Medical Decision Making CT of the abdomen and pelvis is unremarkable. Urinalysis does not show any urinary tract infection, hematuria or significant signs of dehydration. The patient will be discharged home with prescriptions provided by Dr. Conde. Critical care attestation.: If time is entered above; I have spent that time in minutes in the direct care of this critically ill patient, excluding procedure time. ED Disposition Is pt being admited?: No
[2021-08-28 16:09] LABS: Bilirubin,Urine NEG (Negative); Blood,Urine NEG (Negative); Color,Urine Yellow (Yellow); Protein,Urine <15 mg/dL mg/dL (Negative); Urobilinogen,Urine < 2.0 mg/dL (<2.0)
--- NOTE | 2021-08-28 16:45 | Cat Scan Report ---
CT ABDOMEN AND PELVIS WITHOUT CONTRAST INDICATION / CLINICAL INFORMATION: left flank pain. TECHNIQUE: Axial CT images were obtained through the abdomen and pelvis without IV contrast. All CT scans at this location are performed using CT dose reduction for ALARA by means of automated exposure control. COMPARISON: None available. FINDINGS: LOWER CHEST: No significant abnormality. LIVER: No significant abnormality. GALLBLADDER: No significant abnormality. BILE DUCTS: No significant abnormality. PANCREAS: No significant abnormality. SPLEEN: No significant abnormality. ADRENALS: No significant abnormality. RIGHT KIDNEY / URETER: No significant abnormality. LEFT KIDNEY / URETER: No stones or hydronephrosis. Small cortical hypodensities likely representing c ysts. STOMACH / SMALL BOWEL: No significant abnormality. COLON: Diverticulosis without acute inflammation. APPENDIX: No significant abnormality. PERITONEUM: No free fluid. No free air. No fluid collection. LYMPH NODES: No significant adenopathy. AORTA / ARTERIES: Mild atherosclerotic calcification without acute abnormality. IVC / VEINS: No significant abnormality. URINARY BLADDER: No significant abnormality. REPRODUCTIVE ORGANS: No significant abnormality. ADDITIONAL FINDINGS: None. SKELETAL SYSTEM: No significant abnormality. IMPRESSION: 1. No inflammatory process or bowel obstruction. 2. No urinary tract stones or hydronephrosis. Signer Name: Eloina Machuca MD Signed: 08/28/2021 4:40 PM Workstation Name: [id number]
[2021-08-28 17:52] VITALS: BP 131/78
--- NOTE | 2021-08-30 09:31 | Electrocardiograph Report ---
[facility] Test Date: 2021-08-28 Test Time: 13:52:23 Pat Name: TATUM MCCULLOUGH Department: Room: Gender: Dope Weigh Operator: [id number] : [id number] Requested By: HEBERT ALVAREZ Order Number: [id number] Reading MD: Jacobo Burns Measurements Intervals [place] Rate: 47 P: 60 AL: 211 QRS: 48 QRSD: 98 T: 53 QT: 480 QTc: 422 Interpretive Statements Sinus bradycardia lvh nonspecific st-t No previous ECG available for comparison Electronically Signed On 08-30-2021 9:31:11 EST by Jacobo Burns
== END 2021-08-28 17:52 | disposition home or self-care (01) ==
LOC: ED 10:25
DX: R10.9 Unspecified abdominal pain (principal); M62.830 Muscle spasm of back
CPT/HCPCS: 36415; 71045; 74176; 80048; 81001; 83735; 84484; 85025; 85610; 93005; 96374; 96375; 96376; 99285; J1885; J2270; J3360